=== PATIENT | female | born 1965 | race Caucasian/White ===

== ENCOUNTER → 2016-06-01 | Outpatient (CLI) | payer MEDICARE, BC ==
[2016-06-01 09:52] LABS: CH 28.4; CHCM 33.6; HDW 3.63; HGB 12.8 gm/dL (11.4-16.0); MCH 27.8 pg (25.0-35.0); MCHC 32.8 g/dL (31.0-37.0); MCV 84.9 fL (80.0-100.0); Mean Platelet Volume 7.1; Poikilocytosis Slight; RDW 15.7 % (11.5-15.5)
[2016-06-01 10:10] LABS: ALT 37 U/L (9-52); AST 28 U/L (14-36); Alkaline Phosphatase 90 U/L (38-126); Anion Gap 16 mmol/L; Blood Urea Nitrogen 17 mg/dL (7-17); Calcium 9.8 mg/dL (8.4-10.2); Carbon Dioxide 23 mmol/L (22-30); Chloride 103 mmol/L (98-107); Cholesterol 257 mg/dL (<200); Glucose 193 mg/dL (74-99); HDL Cholesterol 45 mg/dL (40-60); Non-African American GFR(MDRD) >60 (>60 ml/min/1.73 sqM); Potassium 4.9 mmol/L (3.5-5.1); Sodium 142 mmol/L (137-145); Total Bilirubin 0.6 mg/dL (0.2-1.3); Total Protein 7.9 g/dL (6.3-8.2)
[2016-06-01 10:25] LABS: Triglycerides 1100 mg/dL (<150)
[2016-06-01 11:17] LABS: Hemoglobin A1C 6.8 % (4.2-6.1)
[2016-06-01 12:36] LABS: Erythrocyte Sedimentation Rate 16 mm/hr (0-20)
== END | disposition home or self-care (01) ==
LOC: LABWHC1 09:31
PROVIDERS: ATTEND Family Medicine
DX: E11.9 Type 2 diabetes mellitus without complications (principal); M10.9 Gout, unspecified
CPT/HCPCS: 36415; 80053; 80061; 82043; 83036; 84439; 84443; 84550; 85027; 85652

== ENCOUNTER 2017-05-30 00:25 | Inpatient (IN) | payer BC, MEDICARE ==
[2017-05-30 00:35] LABS: Glucose,Whole Blood 268 mg/dL (75-99)
[2017-05-30] MEDS ORDERED: SODIUM CHLORIDE 0.9% 1,000 ML IV STA ×2 (00:43)
--- NOTE | 2017-05-30 00:46 | ED ---
Chest Pain HPI - General Chief Complaint: Chest Pain Stated Complaint: Hyperglycemia Time Seen by Provider: 05/30/17 00:33 Source: patient, RN notes reviewed Mode of arrival: wheelchair Limitations: no limitations - History of Present Illness Initial Comments: This is a 52-year-old female who states she had the onset about 4 PM today of not feeling well. She does state that her fitbit showed an elevated heart rate It said her heart rate was about 130. She's had nausea and now she's had midsternal chest pain. Mild to moderate in severity nonradiating. She states she just generally does not feel well. She is no prior history of heart disease she does have COPD that she was never smoker. Also has a history of Prakash's MD Complaint: chest pain, other - Related Data Home Medications Medication Instructions Recorded Confirmed Furosemide [Lasix] 40 mg PO DAILY 09/17/13 07/20/15 Lisinopril [Zestril] 10 mg PO DAILY 09/17/13 07/20/15 metFORMIN HCL ER [Glucophage Xr] 750 mg PO TID 09/17/13 07/20/15 Allopurinol [Zyloprim] 300 mg PO DAILY 07/27/14 07/20/15 Colchicine [Colcrys] 0.6 mg PO DAILY 07/27/14 07/20/15 Pregabalin [Lyrica] 75 mg PO BID 07/27/14 07/20/15 B Complex & C No.20/Folic Acid 1 mg PO DAILY 07/20/15 07/20/15 [Nephrocaps Softgel] Cholecalciferol [Vitamin D3] 4,200 mg PO DAILY 07/20/15 07/20/15 Cyclobenzaprine [Flexeril] 10 mg PO HS 07/20/15 07/20/15 Iron 18 mg PO DAILY 07/20/15 07/20/15 Milk Thistle 150 mg PO DAILY 07/20/15 07/20/15 Omeprazole [PriLOSEC] 40 mg PO AC-BRKFST 07/20/15 07/20/15 Simvastatin [Zocor] 40 mg PO HS 07/20/15 07/20/15 glipiZIDE XL [Glucotrol Xl] 5 mg PO DAILY 07/20/15 07/20/15 Allergies Allergy/AdvReac Type Severity Reaction Status Date / Time iodine Allergy Anaphylaxis Verified 05/30/17 00:27 latex Allergy Swelling Verified 05/30/17 00:27 codeine AdvReac Nausea & Verified 05/30/17 00:27 Vomiting Review of Systems ROS Statement: Those systems with pertinent positive or pertinent negative responses have been documented in the HPI. ROS Other: All systems not noted in ROS Statement are negative. Past Medical History Past Medical History: COPD, Diabetes Mellitus, Fibromyalgia, Hyperlipidemia, Hypertension, Liver Disease, Renal Disease, Thyroid Disorder Additional Past Medical History / Comment(s): cushings, enlarged spleen, anemia History of Any Multi-Drug Resistant Organisms: None Reported Past Surgical History: Back Surgery, Breast Surgery, Section, Cholecystectomy, Hysterectomy Past Psychological History: No Psychological Hx Reported Smoking Status: Never smoker Past Alcohol Use History: None Reported Past Drug Use History: None Reported General Exam - General Exam Comments Initial Comments: This is a well-developed well-nourished awake alert oriented x 3 female Limitations: no limitations General appearance: alert, anxious Head exam: Present: atraumatic, normocephalic, normal inspection Eye exam: Present: normal appearance, PERRL, EOMI. Absent: scleral icterus, conjunctival injection, periorbital swelling ENT exam: Present: normal exam, mucous membranes moist Neck exam: Present: normal inspection. Absent: tenderness, meningismus, lymphadenopathy Respiratory exam: Present: normal lung sounds bilaterally, chest wall tenderness. Absent: respiratory distress, wheezes, rales, rhonchi, stridor Cardiovascular Exam: Present: normal rhythm, tachycardia, normal heart sounds. Absent: systolic murmur, diastolic murmur, rubs, gallop, clicks GI/Abdominal exam: Present: soft, tenderness (Mild left upper quadrant tenderness palpation patient does have a history of splenomegaly since childhood.), normal bowel sounds. Absent: distended, guarding, rebound, rigid Extremities exam: Present: normal inspection, full ROM, normal capillary refill. Absent: tenderness, pedal edema, joint swelling, calf tenderness Back exam: Present: normal inspection Neurological exam: Present: alert, oriented X3, CN II-XII intact Psychiatric exam: Present: normal affect, normal mood Skin exam: Present: warm, dry, intact, normal color. Absent: rash Course Vital Signs 05/30/17 05/30/17 05/30/17 00:27 00:55 02:12 Temperature 100.7 F H Pulse Rate 148 H 136 H 117 H Respiratory 24 18 18 Rate Blood Pressure 142/83 136/95 116/68 O2 Sat by Pulse 99 98 99 Oximetry 05/30/17 05/30/17 03:01 04:13 Temperature 99.2 F 98.4 F Pulse Rate 118 H 114 H Respiratory 20 20 Rate Blood Pressure 142/83 136/76 O2 Sat by Pulse 98 97 Oximetry - Reevaluation(s) Reevaluation #1: 05/30/17 04:43 I did reevaluate patient several occasions. Patient's heart rate has improved after IV fluids is unclear the exact etiology of the tachycardia no source of infection is found so far likely viral in etiology. Patient is clinically has some evidence of dehydration. The d-dimer is elevated a PE is considered the patient has a severe ALLERGY to iodine and cannot take iodine-based medication. A VQ scan will be ordered for the morning. Patient will be admitted. Chest Pain MDM - MDM I did review the imaging and reports no acute findings. Patient will be admitted due to her ALLERGY to iodine a VQ scan has been ordered. She was given a dose of antibiotic due to the fever of unknown origin at this time. Disposition Clinical Impression: Chest pain, Lactic acidosis, Febrile illness, acute, Viral syndrome, Elevated d -dimer, Tachycardia Disposition: ADMITTED IP TO THIS HOSP Condition: Stable Referrals: None,Stated [REFERRING] - 1-2 days
[2017-05-30 01:00] LABS: Anisocytosis Slight; Basophils % (A) 0 %; Eosinophils # (A) 0.1 k/uL (0-0.7); Eosinophils % (A) 2 %; HCT 41.6 % (34.0-46.0); HGB 14.2 gm/dL (11.4-16.0); Lymphocytes # (A) 0.4 k/uL (1.0-4.8); Lymphocytes % (A) 7 %; MCH 28.1 pg (25.0-35.0); MCV 82.5 fL (80.0-100.0); Mean Platelet Volume 7.9; Monocytes # (A) 0.1 k/uL (0-1.0); Monocytes % (A) 2 %; Neutrophils # (A) 5.4 k/uL (1.3-7.7); Neutrophils % (A) 89 %; Platelet Count 129 k/uL (150-450); RBC 5.04 m/uL (3.80-5.40); RDW 16.4 % (11.5-15.5); WBC 6.1 k/uL (3.8-10.6)
[2017-05-30 01:10] LABS: ALT 55 U/L (9-52); AST 56 U/L (14-36); Albumin 4.4 g/dL (3.5-5.0); Alkaline Phosphatase 96 U/L (38-126); Amylase 44 U/L (30-110); Anion Gap 17 mmol/L; Blood Urea Nitrogen 21 mg/dL (7-17); Calcium 9.4 mg/dL (8.4-10.2); Carbon Dioxide 22 mmol/L (22-30); Chloride 99 mmol/L (98-107); Glucose 254 mg/dL (74-99); Lipase 65 U/L (23-300); Magnesium 1.4 mg/dL (1.6-2.3); Potassium 4.1 mmol/L (3.5-5.1); Sodium 138 mmol/L (137-145); Total Bilirubin 1.1 mg/dL (0.2-1.3); Total Protein 6.9 g/dL (6.3-8.2)
[2017-05-30] MEDS ORDERED: MAGNESIUM SULFATE-D5W PMX 1 GM in DEXTROSE/WATER 1 100ML.BAG IVPB ONE (01:13)
[2017-05-30 01:20] LABS: Creatine Kinase 69 U/L (30-135)
[2017-05-30 01:22] LABS: D-Dimer 0.8 mg/L FEU (<0.60); Prothrombin Time 10.2 sec (9.0-12.0)
[2017-05-30 01:31] LABS: Appearance,Urine Clear (Clear); Bilirubin,Urine Negative (Negative); Blood,Urine Negative (Negative); Color,Urine Yellow; Glucose,Urine (UA) 3+ (Negative); Leukocyte Esterase,Urine Negative (Negative); Nitrite,Urine Negative (Negative); PH, Urine 5.5 (5.0-8.0); Protein,Urine Trace (Negative); Specific Gravity,Urine 1.027 (1.001-1.035); Urobilinogen,Urine <2.0 mg/dL (<2.0)
[2017-05-30 01:34] LABS: Creatine Kinase MB 0.9 ng/mL (0.0-2.4); Troponin I <0.012 ng/mL (0.000-0.034)
--- NOTE | 2017-05-30 01:35 | XR ---
EXAMINATION TYPE: XR chest 2V DATE OF EXAM: 05/30/2017 COMPARISON: 07/21/2015 HISTORY: Chest pain TECHNIQUE: Frontal and lateral views of the chest are obtained. FINDINGS: There is a poor inspiration. There is no gross heart failure. Heart size is normal. There are chest leads. Costophrenic angles are clear. IMPRESSION: Poor inspiration that is new compared to old exam. Normal heart. No gross heart failure.
[2017-05-30 01:55] LABS: Ketones,Urine 2+ (Negative)
--- NOTE | 2017-05-30 02:13 | US ---
EXAMINATION TYPE: US abd limited kidneys/bladder DATE OF EXAM: 05/30/2017 COMPARISON: EXAMINATION TYPE: US abd limited kidneys/bladder DATE OF EXAM: 05/30/2017 COMPARISON: EXAMINATION TYPE: US abd limited kidneys/bladder DATE OF EXAM: 05/30/2017 COMPARISON: NONE CLINICAL HISTORY: Pain. EXAM MEASUREMENTS: Spleen: wnl Left Kidney: wnl Right Kidney: 11.1 x 4.4 x EXAMINATION TYPE: US abd limited kidneys/bladder DATE OF EXAM: 05/30/2017 COMPARISON: NONE CLINICAL HISTORY: Pain. LLQ pain kidneys and bladder with spleen per Dr. Farrell. EXAM MEASUREMENTS: Right Kidney: 11.5 x 4.0 x 4.6 cm Left Kidney: 12.0 x 4.7 x 3.9 cm Right Kidney: No hydronephrosis or masses seen Left Kidney: Anechoic area seen upper pole measuring 1.8 x 1.7 x 2.2cm Bladder: not fully distended Spleen: 16cm Splenomegaly with accessory spleen seen measuring 1.4 x 1.9 x 1.5cm IMPRESSION: There is a simple 1.8 cm cyst on the upper pole left kidney. No evidence of solid renal m ass or obstruction. Splenomegaly. Spleen measures 15.9 cm. Urinary bladder was almost empty during th e exam.
[2017-05-30] MEDS ORDERED: HEPARIN SODIUM,PORCINE 5,000 UNIT/ML 1 ML VIAL IV STA (02:35)
[2017-05-30] MEDS ORDERED: HEPARIN SOD,PORK IN 0.45% NACL 25,000 UNIT in 0.45% NACL 1 500ML.BAG IV SCH (02:45)
[2017-05-30] MEDS ORDERED: SODIUM CHLORIDE 0.9% 2,000 ML IV ONE (03:50)
[2017-05-30] MEDS ORDERED: cefTRIAXone IN SWFI 1,000 MG/10 ML SYRINGE IVP STA (03:50)
[2017-05-30] MEDS ORDERED: ACETAMINOPHEN TAB 500 MG TAB PO STA (04:01)
[2017-05-30] MEDS ORDERED: ACETAMINOPHEN TAB 325 MG TAB PO PRN (05:16)
[2017-05-30] MEDS ORDERED: NALOXONE 0.4 MG/ML 1 ML VIAL IV PRN (05:16)
[2017-05-30] MEDS ORDERED: IBUPROFEN 400 MG TAB PO PRN (05:16)
[2017-05-30 06:12] VITALS: BMI 28.8
[2017-05-30 06:17] LABS: Glucose,Whole Blood 226 mg/dL (75-99)
--- NOTE | 2017-05-30 07:26 | P.HPIM ---
History of Present Illness H&P Date: 05/30/17 Chief Complaint: Chest pain. This is a history and physical on a 52-year-old white female with known history of diabetes who yesterday's started feeling tachycardic. She noticed this because of severe pain. She states her chest pressure. She was wearing her FITBIT and noticed heart rates in the 130s and 140s. Blood sugar was also quite elevated yesterday. This is somewhat unusual for the patient, to begin with. She states she had a new grandbaby in the family born yesterday so she is quite happy. There is no overt distress. She's been exercising normally until this past day. Because of her presentation with the severe chest pressure. There was no nausea no vomiting she is also had slight febrile illness element. The patient was admitted to rule out myocardial infraction with pulmonary embolus. The patient is sitting somewhat uncomfortably this morning a little bit anxious otherwise. Review of Systems Constitutional: Reports as per HPI Eyes: denies blurred vision, denies pain Ears, nose, mouth and throat: Denies dysphagia Cardiovascular: Reports chest pain Respiratory: Denies cough, Denies cough with sputum, Denies hemoptysis Gastrointestinal: Denies abdominal pain, Denies diarrhea, Denies nausea, Denies vomiting Genitourinary: Denies dysuria, Denies hematuria Musculoskeletal: Denies myalgias Integumentary: Denies pruritus, Denies rash Neurological: Denies numbness, Denies weakness Past Medical History Past Medical History: COPD, Diabetes Mellitus, Fibromyalgia, Hyperlipidemia, Hypertension, Liver Disease, Renal Disease, Thyroid Disorder Additional Past Medical History / Comment(s): cushings, enlarged spleen, anemia History of Any Multi-Drug Resistant Organisms: None Reported Past Surgical History: Back Surgery, Breast Surgery, Section, Cholecystectomy, Hysterectomy Past Anesthesia/Blood Transfusion Reactions: No Reported Reaction Past Psychological History: No Psychological Hx Reported Smoking Status: Never smoker Past Alcohol Use History: None Reported Past Drug Use History: None Reported - Past Family History Mother Family Medical History: Neurologic Disorder Father Family Medical History: Cancer, Congestive Heart Failure (CHF), Diabetes Mellitus Medications and Allergies Home Medications Medication Instructions Recorded Confirmed Type Lisinopril [Zestril] 10 mg PO DAILY 09/17/13 07/20/15 History metFORMIN HCL ER [Glucophage Xr] 750 mg PO BID 09/17/13 07/20/15 History B Complex & C No.20/Folic Acid 1 mg PO DAILY 07/20/15 07/20/15 History [Nephrocaps Softgel] Cholecalciferol [Vitamin D3] 4,000 mg PO DAILY 07/20/15 07/20/15 History Milk Thistle 175 mg PO DAILY 07/20/15 07/20/15 History Simvastatin [Zocor] 20 mg PO HS 07/20/15 07/20/15 History glipiZIDE XL [Glucotrol Xl] 10 mg PO DAILY 07/20/15 07/20/15 History ALPRAZolam [Xanax] 0.5 mg PO Q12HR PRN 05/30/17 05/30/17 History Ascorbic Acid [Vitamin C] 1,000 mg PO DAILY 05/30/17 05/30/17 History Cranberry Fruit Concentrate [Azo 25,000 mg PO DAILY 05/30/17 05/30/17 History Cranberry] Sennosides [Senna] 3 tab PO HS 05/30/17 05/30/17 History Ubidecarenone [Co Q-10] 100 mg PO DAILY 05/30/17 05/30/17 History Zinc 30 mg PO DAILY 05/30/17 05/30/17 History Allergies Allergy/AdvReac Type Severity Reaction Status Date / Time iodine Allergy Anaphylaxis Verified 05/30/17 00:27 latex Allergy Swelling Verified 05/30/17 00:27 codeine AdvReac Nausea & Verified 05/30/17 00:27 Vomiting Physical Exam Vitals: Vital Signs Temp Pulse Pulse Resp BP BP Pulse Ox 05/30/17 05:37 99.3 F 117 H 18 125/74 96 05/30/17 05:32 99.0 F 113 H 16 126/73 100 05/30/17 04:13 98.4 F 114 H 20 136/76 97 05/30/17 03:01 99.2 F 118 H 20 142/83 98 05/30/17 02:12 117 H 18 116/68 99 05/30/17 00:55 136 H 18 136/95 98 05/30/17 00:27 100.7 F H 148 H 24 142/83 99 Intake and Output 05/29/17 05/30/17 05/30/17 22:59 06:59 14:59 Other: Weight 96.6 kg - Constitutional General appearance: average body habitus - EENT Eyes: no abnormal pupil - Neck Neck: no lymphadenopathy - Respiratory Respiratory: bilateral: CTA - Cardiovascular Heart rate: 120 Rhythm: regular Heart sounds: normal: S1, S2 Abnormal Heart Sounds: no S3 Gallop - Gastrointestinal General gastrointestinal: soft, no tenderness - Integumentary Integumentary: no cyanotic - Neurologic Neurologic: CNII-XII intact Results CBC & Chem 7: 05/30/17 00:48 05/30/17 00:48 Labs: Abnormal Lab Results - Last 24 Hours (Table) 05/30/17 05/30/17 05/30/17 Range/Units 00:34 00:48 00:48 RDW 16.4 H (11.5-15.5) % Plt Count 129 L (150-450) k/uL Lymphocytes # 0.4 L (1.0-4.8) k/uL D-Dimer (<0.60) mg/L FEU BUN 21 H (7-17) mg/dL Glucose 254 H (74-99) mg/dL POC Glucose (mg/dL) 268 H (75-99) mg/dL Plasma Lactic Acid Erick (0.7-2.0) mmol/L Magnesium 1.4 L (1.6-2.3) mg/dL AST 56 H (14-36) U/L ALT 55 H (9-52) U/L Urine Protein (Negative) Urine Glucose (UA) (Negative) Urine Ketones (Negative) 05/30/17 05/30/17 05/30/17 Range/Units 00:48 00:48 01:25 RDW (11.5-15.5) % Plt Count (150-450) k/uL Lymphocytes # (1.0-4.8) k/uL D-Dimer 0.80 H (<0.60) mg/L FEU BUN (7-17) mg/dL Glucose (74-99) mg/dL POC Glucose (mg/dL) (75-99) mg/dL Plasma Lactic Acid Erick 3.3 H* (0.7-2.0) mmol/L Magnesium (1.6-2.3) mg/dL AST (14-36) U/L ALT (9-52) U/L Urine Protein Trace H (Negative) Urine Glucose (UA) 3+ H (Negative) Urine Ketones 2+ H (Negative) 05/30/17 05/30/17 Range/Units 05:19 06:15 RDW (11.5-15.5) % Plt Count (150-450) k/uL Lymphocytes # (1.0-4.8) k/uL D-Dimer (<0.60) mg/L FEU BUN (7-17) mg/dL Glucose (74-99) mg/dL POC Glucose (mg/dL) 226 H (75-99) mg/dL Plasma Lactic Acid Erick 2.7 H* (0.7-2.0) mmol/L Magnesium (1.6-2.3) mg/dL AST (14-36) U/L ALT (9-52) U/L Urine Protein (Negative) Urine Glucose (UA) (Negative) Urine Ketones (Negative) Thrombosis Risk Factor Assmnt - Choose All That Apply Any of the Below Risk Factors Present?: Yes Each Factor Represents 1 point: Abnormal pulmonary function (COPD), Age 41-60 years, Obesity (BMI >25) Other Risk Factors: Yes Each Risk Factor Represents 3 Points: Family history of DVT/PE, History of DVT/ PE Thrombosis Risk Factor Assessment Total Risk Factor Score: 9 Thrombosis Risk Factor Assessment Level: High Risk Assessment and Plan (1) Altered glucose metabolism due to diabetes Current Visit: Yes Status: Acute Code(s): E11.9 - TYPE 2 DIABETES MELLITUS WITHOUT COMPLICATIONS SNOMED Code(s): 54989543 (2) Chest pain Current Visit: Yes Status: Acute Code(s): R07.9 - CHEST PAIN, UNSPECIFIED SNOMED Code(s): 54732125 (3) Elevated d-dimer Current Visit: Yes Status: Acute Code(s): R79.89 - OTHER SPECIFIED ABNORMAL FINDINGS OF BLOOD CHEMISTRY SNOMED Code(s): 454186844 (4) Febrile illness, acute Current Visit: Yes Status: Acute Code(s): R50.9 - FEVER, UNSPECIFIED SNOMED Code(s): 038506259 (5) Tachycardia Current Visit: Yes Status: Acute Code(s): R00.0 - TACHYCARDIA, UNSPECIFIED SNOMED Code(s): 9371552 Plan: Given her overall comorbidities, rule out myocardial infraction and pulmonary embolus. Consult cardiology at this time. Continue heparin. Reconcile home medications. Question new element of SVT. Watch electrolytes and vitals closely. Question need for pain control versus chronotropic treatment. Otherwise, I discussed with CODE STATUS, she is a full code at this time. Dr. Damian's group will be covering for the weekend. See orders otherwise. Time with Patient: Greater than 30
[2017-05-30] MEDS ORDERED: ONDANSETRON 4 MG/2 ML VIAL IVP PRN (07:59)
--- NOTE | 2017-05-30 08:43 | P.CRDCN ---
History of Present Illness Consult date: 05/30/17 Requesting physician: Anirudh Bhandari Reason for Consult (text): chest pain Chief complaint: shortness of breath, chest pressure History of present illness: A pleasant 52-year-old female patient with past history of diabetes, hypertension and family history significant for coronary artery disease. She presented to the emergency department after developing complaints of overall not feeling well sometime after lunch yesterday. She noticed her heart rate to be elevated as well as her blood sugar. She also developed some shortness of breath and chest pressure as well as some left upper quadrant abdominal pain. Upon presentation patient was found to be febrile with temperature 100.7. She was tachycardic in the 130s 140s, sinus mechanism. Labs showed an elevated d- dimer at 0.80, magnesium 1.4 this was supplemented and elevated lactic acid of 3.3. Troponin was negative at less than 0.012 and BNP was normal at 23. Iodine ALLERGY, she has been scheduled to undergo VQ scan this morning. Chest x -ray showed poor inspiration that is new compared to old exam with no gross heart failure. He is been started on IV fluids and IV heparin. Upon examination, patient is resting in bed. She is overall not feeling well. She continues to complain of feeling short of breath with some nausea and chest pressure as well as some left upper quadrant discomfort. Past Medical History Past Medical History: COPD, Diabetes Mellitus, Fibromyalgia, Hyperlipidemia, Hypertension, Liver Disease, Renal Disease, Thyroid Disorder Additional Past Medical History / Comment(s): cushings, enlarged spleen, anemia History of Any Multi-Drug Resistant Organisms: None Reported Past Surgical History: Back Surgery, Breast Surgery, Section, Cholecystectomy, Hysterectomy Past Anesthesia/Blood Transfusion Reactions: No Reported Reaction Past Psychological History: No Psychological Hx Reported Smoking Status: Never smoker Past Alcohol Use History: None Reported Past Drug Use History: None Reported - Past Family History Mother Family Medical History: Neurologic Disorder Father Family Medical History: Cancer, Congestive Heart Failure (CHF), Diabetes Mellitus Medications and Allergies Home Medications Medication Instructions Recorded Confirmed Type Lisinopril [Zestril] 10 mg PO DAILY 09/17/13 05/30/17 History metFORMIN HCL ER [Glucophage Xr] 500 mg PO DAILY PRN 09/17/13 05/30/17 History B Complex & C No.20/Folic Acid 1 mg PO DAILY 07/20/15 05/30/17 History [Nephrocaps Softgel] Cholecalciferol [Vitamin D3] 4,000 mg PO DAILY 07/20/15 05/30/17 History Simvastatin [Zocor] 20 mg PO HS 07/20/15 05/30/17 History glipiZIDE XL [Glucotrol Xl] 5 mg PO DAILY 07/20/15 05/30/17 History ALPRAZolam [Xanax] 0.5 mg PO TID PRN 05/30/17 05/30/17 History Ascorbic Acid [Vitamin C] 1,000 mg PO DAILY 05/30/17 05/30/17 History Cranberry Fruit Concentrate [Azo 25,000 mg PO DAILY 05/30/17 05/30/17 History Cranberry] Naproxen Sodium [Aleve] 220 mg PO DAILY PRN 05/30/17 05/30/17 History Sennosides [Senna] 25.8 tab PO HS 05/30/17 05/30/17 History Ubidecarenone [Co Q-10] 100 mg PO DAILY 05/30/17 05/30/17 History Zinc 509 mg PO DAILY PRN 05/30/17 05/30/17 History Allergies Allergy/AdvReac Type Severity Reaction Status Date / Time iodine Allergy Anaphylaxis Verified 05/30/17 08:22 latex Allergy Swelling Verified 05/30/17 08:22 codeine AdvReac Nausea & Verified 05/30/17 08:22 Vomiting Physical Exam Vitals: Vital Signs Temp Pulse Pulse Resp BP BP Pulse Ox 05/30/17 08:00 99 F 121 H 18 104/56 99 05/30/17 05:37 99.3 F 117 H 18 125/74 96 05/30/17 05:32 99.0 F 113 H 16 126/73 100 05/30/17 04:13 98.4 F 114 H 20 136/76 97 05/30/17 03:01 99.2 F 118 H 20 142/83 98 05/30/17 02:12 117 H 18 116/68 99 05/30/17 00:55 136 H 18 136/95 98 05/30/17 00:27 100.7 F H 148 H 24 142/83 99 Intake and Output 05/29/17 05/30/17 05/30/17 22:59 06:59 14:59 Other: # Voids 1 Weight 96.6 kg PHYSICAL EXAMINATION: HEENT: Head is atraumatic, normocephalic. Pupils equal, round. Neck is supple. There is no elevated jugular venous pressure. HEART EXAMINATION: Heart sounds regular, S1 and S2, tachycardic with a systolic murmur. CHEST EXAMINATION: Lungs are clear to auscultation and precussion. No chest wall tenderness is noted on palpation or with deep breathing. ABDOMEN: Soft, left upper quadrant tender to palpation. Bowel sounds are heard. No organomegaly noted. EXTREMITIES: 2+ peripheral pulses with no evidence of peripheral edema and no calf tenderness noted. NEUROLOGIC patient is awake, alert and oriented x3. . Results 05/30/17 00:48 05/30/17 00:48 Cardiac Enzymes 05/30/17 05/30/17 Range/Units 00:48 00:48 AST 56 H (14-36) U/L CK-MB (CK-2) 0.9 (0.0-2.4) ng/mL Troponin I <0.012 (0.000-0.034) ng/mL Coagulation 05/30/17 Range/Units 00:48 PT 10.2 (9.0-12.0) sec APTT 22.0 (22.0-30.0) sec CBC 05/30/17 Range/Units 00:48 WBC 6.1 (3.8-10.6) k/uL RBC 5.04 (3.80-5.40) m/uL Hgb 14.2 (11.4-16.0) gm/dL Hct 41.6 (34.0-46.0) % Plt Count 129 L (150-450) k/uL Comprehensive Metabolic Panel 05/30/17 Range/Units 00:48 Sodium 138 (137-145) mmol/L Potassium 4.1 (3.5-5.1) mmol/L Chloride 99 (98-107) mmol/L Carbon Dioxide 22 (22-30) mmol/L BUN 21 H (7-17) mg/dL Creatinine 0.80 (0.52-1.04) mg/dL Glucose 254 H (74-99) mg/dL Calcium 9.4 (8.4-10.2) mg/dL AST 56 H (14-36) U/L ALT 55 H (9-52) U/L Alkaline Phosphatase 96 (38-126) U/L Total Protein 6.9 (6.3-8.2) g/dL Albumin 4.4 (3.5-5.0) g/dL Current Medications Generic Name Dose Route Start Last Admin Trade Name Freq PRN Reason Stop Dose Admin Acetaminophen 650 mg 05/30/17 05:16 Tylenol Tab PO Q6HR PRN Mild Pain or Fever > 100.5 Allopurinol 300 mg 05/30/17 09:00 Zyloprim PO DAILY [facility] Atorvastatin Calcium 20 mg 05/30/17 21:00 Lipitor PO HS [facility] Cholecalciferol 4,000 unit 05/30/17 09:00 Vitamin D3 PO DAILY [facility] Colchicine 0.6 mg 05/30/17 09:00 Colcrys PO DAILY [facility] Cyclobenzaprine HCl 10 mg 05/30/17 21:00 Flexeril PO HS [facility] Ferrous Sulfate 325 mg 05/30/17 09:00 Feosol PO DAILY [facility] Furosemide 40 mg 05/30/17 09:00 Lasix PO DAILY [facility] Glipizide 2.5 mg 05/30/17 09:00 Glucotrol PO BID [facility] Sodium Chloride 1,000 mls @ 100 mls/hr 05/30/17 00:43 05/30/17 00:54 Saline 0.9% IV 05/30/17 10:42 100 mls/hr .Q10H STA Administration Heparin Sodium/Sodium Chloride 500 mls @ 34.78 mls/hr 05/30/17 02:45 02:58 25,000 unit/ Sodium Chloride IV 18 units/kg/hr .[id number] REBECCA 34.78 mls/hr Protocol Administration 18 UNITS/KG/HR Potassium Chloride/Sodium Chloride 1,000 mls @ 80 mls/hr 05/30/17 07:00 Ns-Kcl 20 Meq/L Iv Solution IV .[id number] [facility] Ibuprofen 400 mg 05/30/17 05:16 Motrin PO Q6HR PRN Mild Pain or Fever > 100.5 Lisinopril 10 mg 05/30/17 09:00 Zestril PO DAILY [facility] Metformin HCl 1,000 mg 05/30/17 09:00 Glucophage PO BID [facility] Naloxone HCl 0.2 mg 05/30/17 05:16 Narcan IV Q2M PRN Opioid Reversal Ondansetron HCl 4 mg 05/30/17 07:59 05/30/17 08:11 Zofran IVP 4 mg Q6HR PRN Administration Nausea And Vomiting Pantoprazole Sodium 40 mg 05/30/17 07:30 Protonix PO AC-BRKFST [facility] Pregabalin 75 mg 05/30/17 09:00 Lyrica PO BID [facility] Intake and Output 05/29/17 05/30/17 05/30/17 22:59 06:59 14:59 Other: # Voids 1 Weight 96.6 kg 05/30/17 00:48 05/30/17 00:48 EKG Interpretations (text) Sinus tachycardia with nonspecific ST-T wave abnormalities Assessment and Plan Assessment: #1 symptoms of shortness of breath with chest pressure as well as nausea and left upper quadrant pain #2 elevated d-dimer, ALLERGY to iodine, awaiting VQ scan #3 diabetes with hyperglycemia #4 Hypertension #5 family history of premature CAD #6 sinus tachycardia likely secondary to febrile illness Plan: From cardiology's perspective, we will obtain a 2-D echo with Doppler to assess LV function. We agree with obtaining VQ scan. Patient requires further workup for febrile illness. We will follow troponin trend and repeat magnesium level. We will continue to follow the patient and provide further recommendations accordingly. MANUFACTURING ENGINEERING TECHNOLOGIST note has been reviewed, I agree with a documented findings and plan of care. Patient was seen and examined.
[2017-05-30] MEDS ORDERED: metFORMIN 500 MG TAB PO SCH (09:00)
[2017-05-30] MEDS ORDERED: FUROSEMIDE 40 MG TAB PO SCH (09:00)
[2017-05-30] MEDS ORDERED: COLCHICINE 0.6 MG TAB PO SCH (09:00)
[2017-05-30] MEDS ORDERED: FERROUS SULFATE 325 MG TAB PO SCH (09:00)
[2017-05-30] MEDS ORDERED: PREGABALIN 75 MG CAP PO SCH (09:00)
[2017-05-30] MEDS ORDERED: ALLOPURINOL 300 MG TAB PO SCH (09:00)
--- NOTE | 2017-05-30 09:25 | P.PN ---
Progress Note - Text This is an addendum to the dictated cardiology consultation. The patient has a history of hypertension, hyperlipidemia, diabetes mellitus and a family history of premature coronary disease who is usually active physically, achieves 10,000 steps a day without any symptoms of dyspnea, chest discomfort or arrhythmia. Yesterday she started complaining of abdominal and lower chest discomfort, fatigue and noted that her heart rate is fast on her Fitbit. She presented to the emergency room and was febrile. She is nauseated, she has no cough. She has no prior cardiac testing or cardiac history. Her physical examination shows clear lungs with no significant murmur and no peripheral edema. She has mild abdominal discomfort. Her EKG shows sinus tachycardia with no acute ST segment changes and her initial troponin is normal. Her plasma lactic acid level is elevated consistent with sepsis. I believe that the sinus tachycardia is a reflex tachycardia to her presenting febrile episode. We will continue IV fluid, obtain an echocardiogram with Doppler and follow her cardiac enzymes. Depending on her progress further recommendations will be made. Thank you for this consult we will follow with you.
[2017-05-30 09:51] LABS: Magnesium 1.6 mg/dL (1.6-2.3)
--- NOTE | 2017-05-30 11:12 | NM ---
EXAMINATION TYPE: NM pul vent and perfuse DATE OF EXAM: 05/30/2017 COMPARISON: Chest radiograph dated 05/30/2017. HISTORY: Elevated d-dimer and shortness of breath TECHNIQUE: Utilizing inhalation of 65.7 mCi Tc 99m DTPA aerosol and intravenous injection of 4.93 mC i of Tc 99m MAA, ventilation and perfusion images are acquired post injection in multiple projections . FINDINGS: Normal radiotracer distribution is noted in the lungs. There is no evidence of mismatched defects. No scintigraphic evidence of pulmonary embolus. IMPRESSION: Normal exam. No perfusion defects with an unremarkable chest radiograph.
[2017-05-30 11:38] LABS: Glucose,Whole Blood 202 mg/dL (75-99)
[2017-05-30] MEDS ORDERED: CYCLOBENZAPRINE 10 MG TAB PO PRN (11:38)
[2017-05-30] MEDS ORDERED: ALLOPURINOL 300 MG TAB PO PRN (11:38)
[2017-05-30] MEDS ORDERED: COLCHICINE 0.6 MG TAB PO PRN (11:38)
[2017-05-30] MEDS ORDERED: metFORMIN 500 MG TAB PO PRN (11:39)
[2017-05-30] MEDS: 0.9% NACL WITH KCL 20 MEQ/L 1,000 ML IV SCH ×2 (11:47→20:00)
[2017-05-30] MEDS: LISINOPRIL 10 MG TAB PO SCH (11:48)
[2017-05-30] MEDS: PANTOPRAZOLE 40 MG TABLET PO SCH (11:49)
[2017-05-30] MEDS: ASPIRIN 81 MG PO SCH (11:50)
[2017-05-30] MEDS: CHOLECALCIFEROL 1,000 UNIT TAB PO SCH (11:51)
[2017-05-30] MEDS: glipiZIDE 5 MG TAB PO SCH ×2 (11:51→18:16)
[2017-05-30] MEDS ORDERED: Magnesium Replacement Protocol 1 EACH MISC MISCELLANE PRN (12:45)
[2017-05-30] MEDS: MAGNESIUM SULFATE-D5W PMX 1 GM in DEXTROSE/WATER 1 100ML.BAG IVPB SCH ×2 (14:07→16:16)
[2017-05-30 16:39] LABS: Glucose,Whole Blood 198 mg/dL (75-99)
[2017-05-30] MEDS ORDERED: LOPERAMIDE 2 MG CAP PO PRN (17:51)
[2017-05-30] MEDS ORDERED: LOPERAMIDE 2 MG CAP PO STA (17:51)
[2017-05-30] MEDS: ATORVASTATIN 20 MG TAB PO SCH (20:08)
[2017-05-30] MEDS ORDERED: PANTOPRAZOLE 40 MG/10 ML VIAL IVP STA (20:44)
[2017-05-30 20:59] LABS: Glucose,Whole Blood 156 mg/dL (75-99)
[2017-05-30] MEDS ORDERED: CYCLOBENZAPRINE 10 MG TAB PO SCH (21:00)
[2017-05-30] MEDS: ACETAMINOPHEN IV (For NPO) 1,000 MG in EMPTY BAG 1 BAG IVPB SCH (21:35)
[2017-05-30] MEDS: ALPRAZolam 0.5 MG TAB PO PRN (21:35)
[2017-05-31 00:25] LABS: Glucose,Whole Blood 103 mg/dL (75-99)
[2017-05-31 02:26] LABS: Glucose,Whole Blood 93 mg/dL (75-99)
[2017-05-31] MEDS: ACETAMINOPHEN IV (For NPO) 1,000 MG in EMPTY BAG 1 BAG IVPB SCH ×3 (06:05→17:16)
[2017-05-31 06:31] LABS: Glucose,Whole Blood 97 mg/dL (75-99)
[2017-05-31 07:20] LABS: Anisocytosis Slight; Basophils % (A) 1 %; Eosinophils # (A) 0.1 k/uL (0-0.7); Eosinophils % (A) 5 %; HCT 30.6 % (34.0-46.0); Hypochromasia Slight; Lymphocytes # (A) 0.4 k/uL (1.0-4.8); Lymphocytes % (A) 21 %; MCH 28.1 pg (25.0-35.0); MCHC 32.7 g/dL (31.0-37.0); Mean Platelet Volume 7.8; Monocytes # (A) 0.1 k/uL (0-1.0); Monocytes % (A) 7 %; Neutrophils # (A) 1.2 k/uL (1.3-7.7); Neutrophils % (A) 64 %; Platelet Count 77 k/uL (150-450); RBC 3.56 m/uL (3.80-5.40); RDW 16.3 % (11.5-15.5)
[2017-05-31 07:23] LABS: WBC 1.9 k/uL (3.8-10.6)
[2017-05-31] MEDS: PANTOPRAZOLE 40 MG TABLET PO SCH (07:28)
[2017-05-31] MEDS: glipiZIDE 5 MG TAB PO SCH ×2 (07:28→17:16)
[2017-05-31 07:34] LABS: Anion Gap 7 mmol/L; Blood Urea Nitrogen 8 mg/dL (7-17); Calcium 7.6 mg/dL (8.4-10.2); Carbon Dioxide 25 mmol/L (22-30); Chloride 108 mmol/L (98-107); Glucose 107 mg/dL (74-99); Magnesium 2.2 mg/dL (1.6-2.3); Potassium 3.8 mmol/L (3.5-5.1); Sodium 140 mmol/L (137-145)
[2017-05-31] MEDS: 0.9% NACL WITH KCL 20 MEQ/L 1,000 ML IV SCH ×2 (08:35→21:10)
[2017-05-31] MEDS: ASPIRIN 81 MG PO SCH (08:36)
[2017-05-31] MEDS: LISINOPRIL 10 MG TAB PO SCH (08:36)
[2017-05-31] MEDS: CHOLECALCIFEROL 1,000 UNIT TAB PO SCH (08:36)
[2017-05-31] MEDS: ALPRAZolam 0.5 MG TAB PO PRN ×2 (08:39→22:09)
[2017-05-31 08:55] LABS: Basophils % (A) 0 %; Eosinophils # (A) 0.1 k/uL (0-0.7); Eosinophils % (A) 6 %; HCT 32.1 % (34.0-46.0); HGB 10.4 gm/dL (11.4-16.0); Lymphocytes # (A) 0.4 k/uL (1.0-4.8); Lymphocytes % (A) 22 %; MCH 28.1 pg (25.0-35.0); MCHC 32.3 g/dL (31.0-37.0); MCV 87.1 fL (80.0-100.0); Mean Platelet Volume 7.8; Monocytes # (A) 0.1 k/uL (0-1.0); Monocytes % (A) 6 %; Neutrophils # (A) 1.1 k/uL (1.3-7.7); Neutrophils % (A) 64 %; Poikilocytosis Slight; RBC 3.68 m/uL (3.80-5.40); RDW 15.4 % (11.5-15.5)
[2017-05-31 08:58] LABS: Platelet Count 75 k/uL (150-450); WBC 1.8 k/uL (3.8-10.6)
[2017-05-31 12:07] LABS: Glucose,Whole Blood 148 mg/dL (75-99)
--- NOTE | 2017-05-31 15:00 | P.PN ---
Subjective Progress Note Date: 05/31/17 This is a pleasant 52-year-old female patient with past history of diabetes, hypertension and family history significant for coronary artery disease. She presented to the emergency department after developing complaints of overall not feeling well sometime after lunch yesterday. She noticed her heart rate to be elevated as well as her blood sugar. She also developed some shortness of breath and chest pressure as well as some left upper quadrant abdominal pain. Upon presentation patient was found to be febrile with temperature 100.7. She was tachycardic in the 130s 140s, sinus mechanism. Labs showed an elevated d-dimer at 0.80, magnesium 1.4 this was supplemented and elevated lactic acid of 3.3. Troponin was negative at less than 0.012 and BNP was normal at 23. Iodine ALLERGY, she underwent VQ scan that was negative for PE. Chest x-ray showed poor inspiration that is new compared to old exam with no gross heart failure. She was started on IV fluids and IV heparin. Upon examination, patient is resting in bed. She is to feel weird, fatigued and weak and she has been afebrile today. Labs have been reviewed and show troponins negative 3. She's had a drop in hemoglobin from 14.2 yesterday to 10.4 today and white count has dropped from 6.1-1.8. After Supplementation her magnesium came back this morning at 2.2. Her heart rate has improved and is running in the 90s, blood pressure is stable. Echocardiogram showed normal LV systolic function with an ejection fraction between 60-65% with no significant valvular wall motion abnormalities. Objective - Vital Signs Vital signs: Vital Signs Temp 98.2 F 05/31/17 12:00 Pulse 92 05/31/17 12:00 Resp 17 05/31/17 12:00 BP 108/62 05/31/17 12:00 Pulse Ox 95 05/31/17 12:00 Intake & Output 05/30/17 05/31/17 05/31/17 18:59 06:59 18:59 Intake Total 500 1240 Balance 500 1240 Weight 104.3 kg Intake: Intake, IV Titration 1040 Amount 0.9% NaCl with KCl 20 Meq 640 /l 1,000 ml @ 80 mls/hr IV .[id number] [facility] Rx#: [id number] ACETAMINOPHEN IV (For NPO 400 ) 1,000 mg In Empty Bag 1 bag @ 400 mls/hr IVPB Q6HR [facility] Rx#:[id number] Oral 500 200 Other: Voiding Method Toilet # Voids 1 1 # Bowel Movements 2 - Exam PHYSICAL EXAMINATION: HEENT: Head is atraumatic, normocephalic. Pupils equal, round. Neck is supple. There is no elevated jugular venous pressure. HEART EXAMINATION: Heart sounds regular, S1 and S2, tachycardic with a systolic murmur. CHEST EXAMINATION: Lungs are clear to auscultation and precussion. No chest wall tenderness is noted on palpation or with deep breathing. ABDOMEN: Soft, left upper quadrant tender to palpation. Bowel sounds are heard. No organomegaly noted. EXTREMITIES: 2+ peripheral pulses with no evidence of peripheral edema and no calf tenderness noted. NEUROLOGIC patient is awake, alert and oriented x3. - Labs CBC & Chem 7: 05/31/17 08:39 05/31/17 06:48 Labs: Abnormal Lab Results - Last 24 Hours (Table) 05/30/17 05/30/17 05/31/17 Range/Units 16:35 20:55 00:05 WBC (3.8-10.6) k/uL RBC (3.80-5.40) m/uL Hgb (11.4-16.0) gm/dL Hct (34.0-46.0) % RDW (11.5-15.5) % Plt Count (150-450) k/uL Neutrophils # (1.3-7.7) k/uL Lymphocytes # (1.0-4.8) k/uL Chloride (98-107) mmol/L Glucose (74-99) mg/dL POC Glucose (mg/dL) 198 H 156 H 103 H (75-99) mg/dL Calcium (8.4-10.2) mg/dL 05/31/17 05/31/17 05/31/17 Range/Units 06:48 06:48 08:39 WBC 1.9 L* 1.8 L* (3.8-10.6) k/uL RBC 3.56 L 3.68 L (3.80-5.40) m/uL Hgb 10.0 L D 10.4 L (11.4-16.0) gm/dL Hct 30.6 L 32.1 L (34.0-46.0) % RDW 16.3 H (11.5-15.5) % Plt Count 77 L 75 L (150-450) k/uL Neutrophils # 1.2 L 1.1 L (1.3-7.7) k/uL Lymphocytes # 0.4 L 0.4 L (1.0-4.8) k/uL Chloride 108 H (98-107) mmol/L Glucose 107 H (74-99) mg/dL POC Glucose (mg/dL) (75-99) mg/dL Calcium 7.6 L (8.4-10.2) mg/dL 05/31/17 Range/Units 12:04 WBC (3.8-10.6) k/uL RBC (3.80-5.40) m/uL Hgb (11.4-16.0) gm/dL Hct (34.0-46.0) % RDW (11.5-15.5) % Plt Count (150-450) k/uL Neutrophils # (1.3-7.7) k/uL Lymphocytes # (1.0-4.8) k/uL Chloride (98-107) mmol/L Glucose (74-99) mg/dL POC Glucose (mg/dL) 148 H (75-99) mg/dL Calcium (8.4-10.2) mg/dL Microbiology - Last 24 Hours (Table) 05/30/17 00:48 Blood Culture - Preliminary Blood No Growth after 24 hours Assessment and Plan Assessment: #1 symptoms of shortness of breath with chest pressure as well as nausea and left upper quadrant pain #2 elevated d-dimer, VQ negative for PE #3 diabetes with hyperglycemia #4 Hypertension #5 family history of premature CAD #6 sinus tachycardia likely secondary to febrile illness, improved #7 Leukopenia Plan: From cardiology's perspective, continue telemetry monitoring for another 24 hours. Patient requires further workup for febrile illness and leukopenia. We will continue to follow the patient and provide further recommendations accordingly. GINSENG FARMER note has been reviewed, I agree with a documented findings and plan of care. Patient was seen and examined.
[2017-05-31 18:01] LABS: Glucose,Whole Blood 147 mg/dL (75-99)
[2017-05-31 20:09] LABS: Glucose,Whole Blood 190 mg/dL (75-99)
[2017-05-31] MEDS ORDERED: MAG HYDROX/AL HYDROX/SIMETH 30 ML CUP PO PRN (21:01)
[2017-05-31] MEDS: ATORVASTATIN 20 MG TAB PO SCH (21:02)
[2017-05-31 23:44] LABS: Glucose,Whole Blood 127 mg/dL (75-99)
[2017-06-01 02:25] LABS: Glucose,Whole Blood 95 mg/dL (75-99)
[2017-06-01 05:42] LABS: Glucose,Whole Blood 104 mg/dL (75-99)
[2017-06-01 06:17] LABS: Anisocytosis Slight; Basophils % (A) 0 %; Eosinophils # (A) 0.1 k/uL (0-0.7); Eosinophils % (A) 7 %; HGB 10.4 gm/dL (11.4-16.0); Hypochromasia Slight; Lymphocytes # (A) 0.7 k/uL (1.0-4.8); Lymphocytes % (A) 32 %; MCH 27.5 pg (25.0-35.0); MCHC 31.5 g/dL (31.0-37.0); MCV 87.2 fL (80.0-100.0); Mean Platelet Volume 7.7; Monocytes # (A) 0.1 k/uL (0-1.0); Monocytes % (A) 6 %; Neutrophils # (A) 1.1 k/uL (1.3-7.7); Neutrophils % (A) 52 %; RBC 3.78 m/uL (3.80-5.40); RDW 16.2 % (11.5-15.5); WBC 2.1 k/uL (3.8-10.6)
[2017-06-01 06:36] LABS: Anion Gap 8 mmol/L; Blood Urea Nitrogen 8 mg/dL (7-17); Calcium 8.2 mg/dL (8.4-10.2); Carbon Dioxide 25 mmol/L (22-30); Chloride 110 mmol/L (98-107); Glucose 108 mg/dL (74-99); Platelet Count 92 k/uL (150-450); Potassium 4.5 mmol/L (3.5-5.1); Sodium 143 mmol/L (137-145)
[2017-06-01] MEDS: glipiZIDE 5 MG TAB PO SCH ×2 (07:04→17:23)
[2017-06-01] MEDS: PANTOPRAZOLE 40 MG TABLET PO SCH (07:04)
[2017-06-01] MEDS: LISINOPRIL 10 MG TAB PO SCH (08:35)
[2017-06-01] MEDS: CHOLECALCIFEROL 1,000 UNIT TAB PO SCH (08:35)
[2017-06-01] MEDS: ASPIRIN 81 MG PO SCH (08:35)
[2017-06-01] MEDS: 0.9% NACL WITH KCL 20 MEQ/L 1,000 ML IV SCH (12:10)
[2017-06-01 12:14] LABS: Glucose,Whole Blood 129 mg/dL (75-99)
--- NOTE | 2017-06-01 15:22 | PN ---
PROGRESS NOTE Mrs. Gutierrez is a 52-year-old female who presented with symptoms of not feeling well and had a febrile episode. She is feeling better today. She is not having the same symptoms. Her breathing is stable. She denies any chest pain. She has no dizziness or palpitation. She denies any nausea. She continues to be at this time on aspirin 81 mg daily, Lipitor 20 mg daily, glipizide 5 mg twice a day, lisinopril 10 mg daily, metformin 1 g twice a day, and Protonix. PHYSICAL EXAMINATION: Blood pressure 106/60 with a heart rate in the 80s. LUNGS: Clear. Heart regular rate rhythm S1, S2. No S3. No rub. ABDOMEN: Soft, nontender. EXTREMITIES: No edema. LAB DATA: Revealed a white blood cell of 2.1 with a hemoglobin of 10.4, her platelets . Her white blood cell have improved compared with yesterday. Her BUN and creatinine 8 and 0.7. She had a ventilation perfusion scan done yesterday that showed no evidence of pulmonary embolism. IMPRESSION: 1. Febrile episode with severe leukopenia and starting to improve gradually. 2. History of hypertension. 3. Hyperlipidemia. 4. History of diabetes mellitus. RECOMMENDATION: From the cardiac standpoint, I will continue present therapy. Follow her blood pressure to see if we need to adjust her antihypertensive regimen. We will follow her lab data. I will obtain the input of the hematology service because of her significant leukopenia. MMODL / IJN: [id number] /
[2017-06-01] MEDS ORDERED: METHYL SALICYLATE/MENTHOL CREAM 5 OZ TOPICAL PRN (15:39)
[2017-06-01 17:13] LABS: Glucose,Whole Blood 112 mg/dL (75-99)
[2017-06-01] MEDS: ATORVASTATIN 20 MG TAB PO SCH (20:33)
[2017-06-01 20:51] LABS: Glucose,Whole Blood 157 mg/dL (75-99)
--- NOTE | 2017-06-01 21:38 | P.PN ---
Subjective Progress Note Date: 05/31/17 Principal diagnosis: Acute gastroenteritis and chest pain This is a history and physical on a 52-year-old white female with known history of diabetes who yesterday's started feeling tachycardic. She noticed this because of severe pain. She states her chest pressure. She was wearing her FITBIT and noticed heart rates in the 130s and 140s. Blood sugar was also quite elevated yesterday. This is somewhat unusual for the patient, to begin with. She states she had a new grandbaby in the family born yesterday so she is quite happy. There is no overt distress. She's been exercising normally until this past day. Because of her presentation with the severe chest pressure. Patient was febrile on his addition 100.7 T-max. Vision was also having nausea vomiting and diarrhea. The patient was admitted to rule out myocardial infraction with pulmonary embolus. The patient is sitting somewhat uncomfortably this morning a little bit anxious otherwise. 05/31/2017 Patient feels is better today. Serial troponins negative. VQ scan showed low probability for PE. Cdiff toxin and influenza negative. Today patient was found to have severe leukopenia and also thrombocytopenia. Hematology service has been consulted. Cardiology is following. No further workup recommended at this time. Diarrhea improving. Patient started to tolerating diet. Objective - Vital Signs Vital signs: Vital Signs Temp 96.1 F L 05/31/17 15:23 Pulse 93 05/31/17 15:23 Resp 17 05/31/17 15:23 BP 110/64 05/31/17 15:23 Pulse Ox 98 05/31/17 15:23 Intake & Output 05/30/17 05/31/17 05/31/17 18:59 06:59 18:59 Intake Total 500 1240 Balance 500 1240 Weight 104.3 kg Intake: Intake, IV Titration 1040 Amount 0.9% NaCl with KCl 20 Meq 640 /l 1,000 ml @ 80 mls/hr IV .[id number] [facility] Rx#: [id number] ACETAMINOPHEN IV (For NPO 400 ) 1,000 mg In Empty Bag 1 bag @ 400 mls/hr IVPB Q6HR [facility] Rx#:[id number] Oral 500 200 Other: Voiding Method Toilet # Voids 1 1 # Bowel Movements 2 - Exam PHYSICAL EXAMINATION: Patient is lying in the bed comfortably, no acute distress, awake alert and oriented.. HEENT: Normocephalic. Neck is supple. Pupils reactive. Nostrils clear. Oral cavity is moist. Ears reveal no drainage. Neck reveals no JVD, carotid bruits, or thyromegaly. CHEST EXAMINATION: Trachea is central. Symmetrical expansion. Lung craig clear to auscultation and percussion. CARDIAC: Normal S1, S2 with no gallops. No murmurs ABDOMEN: Soft. Bowel sounds normal. No organomegaly. No abdominal bruits. Extremities: reveal no edema. No clubbing or cyanosis Neurologically awake, alert, oriented x3 with well-coordinated movements. No focal deficits noted Skin: No rash or skin lesions. Psychiatric: Coperative. Nonsuicidal Musculoskeletal: No joint swelling or deformity. Normal range of motion. - Labs CBC & Chem 7: 06/01/17 05:24 06/01/17 05:24 Labs: Abnormal Lab Results - Last 24 Hours (Table) 05/30/17 05/30/17 05/31/17 Range/Units 16:35 20:55 00:05 WBC (3.8-10.6) k/uL RBC (3.80-5.40) m/uL Hgb (11.4-16.0) gm/dL Hct (34.0-46.0) % RDW (11.5-15.5) % Plt Count (150-450) k/uL Neutrophils # (1.3-7.7) k/uL Lymphocytes # (1.0-4.8) k/uL Chloride (98-107) mmol/L Glucose (74-99) mg/dL POC Glucose (mg/dL) 198 H 156 H 103 H (75-99) mg/dL Calcium (8.4-10.2) mg/dL 05/31/17 05/31/17 05/31/17 Range/Units 06:48 06:48 08:39 WBC 1.9 L* 1.8 L* (3.8-10.6) k/uL RBC 3.56 L 3.68 L (3.80-5.40) m/uL Hgb 10.0 L D 10.4 L (11.4-16.0) gm/dL Hct 30.6 L 32.1 L (34.0-46.0) % RDW 16.3 H (11.5-15.5) % Plt Count 77 L 75 L (150-450) k/uL Neutrophils # 1.2 L 1.1 L (1.3-7.7) k/uL Lymphocytes # 0.4 L 0.4 L (1.0-4.8) k/uL Chloride 108 H (98-107) mmol/L Glucose 107 H (74-99) mg/dL POC Glucose (mg/dL) (75-99) mg/dL Calcium 7.6 L (8.4-10.2) mg/dL 05/31/17 Range/Units 12:04 WBC (3.8-10.6) k/uL RBC (3.80-5.40) m/uL Hgb (11.4-16.0) gm/dL Hct (34.0-46.0) % RDW (11.5-15.5) % Plt Count (150-450) k/uL Neutrophils # (1.3-7.7) k/uL Lymphocytes # (1.0-4.8) k/uL Chloride (98-107) mmol/L Glucose (74-99) mg/dL POC Glucose (mg/dL) 148 H (75-99) mg/dL Calcium (8.4-10.2) mg/dL Microbiology - Last 24 Hours (Table) 05/30/17 00:48 Blood Culture - Preliminary Blood No Growth after 24 hours Assessment and Plan Assessment: Shortness of breath and chest pressure. Cardiac workup including serial EKGs and troponins negative. Fever with Nausea and diarrhea with left upper quadrant pain. Possible acute viral gastroenteritis. Improving now Splenomegaly. As the patient patient had thyromegaly before and was told it has improved previously but repeat ultrasound during this admission showed splenomegaly again. Severe neutropenia and thrombocytopenia. Possible splenic sequestration. Hematology consulted for further evaluation. Elevated d-dimer. VQ scan showed low probability for PE Hyperglycemia Diabetes type 2 Fibromyalgia hypertension family history of premature heart disease DVT prophylaxis. We will hold heparin due to thrombo-cytopenia Plan: Patient be continued on symptomatic management for nausea and chest pressure seems to be more likely musculoskeletal. Continue with the PPI. Will follow up CBC with differential tomorrow. Hematology has been consulted. Advance diet as tolerated. Continue with insulin dosing and titrated as needed. Further recommendations based on the clinical course. Prognosis is guarded. Time with Patient: Greater than 30
--- NOTE | 2017-06-01 21:41 | P.PN ---
Subjective Progress Note Date: 06/01/17 Principal diagnosis: Acute gastroenteritis and chest pain This is a history and physical on a 52-year-old white female with known history of diabetes who yesterday's started feeling tachycardic. She noticed this because of severe pain. She states her chest pressure. She was wearing her FITBIT and noticed heart rates in the 130s and 140s. Blood sugar was also quite elevated yesterday. This is somewhat unusual for the patient, to begin with. She states she had a new grandbaby in the family born yesterday so she is quite happy. There is no overt distress. She's been exercising normally until this past day. Because of her presentation with the severe chest pressure. Patient was febrile on his addition 100.7 T-max. Vision was also having nausea vomiting and diarrhea. The patient was admitted to rule out myocardial infraction with pulmonary embolus. The patient is sitting somewhat uncomfortably this morning a little bit anxious otherwise. 05/31/2017 Patient feels is better today. Serial troponins negative. VQ scan showed low probability for PE. Cdiff toxin and influenza negative. Today patient was found to have severe leukopenia and also thrombocytopenia. Hematology service has been consulted. Cardiology is following. No further workup recommended at this time. Diarrhea improving. Patient started to tolerating diet. 06/01/2017 Patient is improving slowly. Awaiting the right. Leukopenia slightly improved today. Overall patient feels better. Hematology has been consulted due to leukopenia and splenomegaly. No fever no chills. No acute overnight issues. All other review of systems negative except above Current medications reviewed Objective - Vital Signs Vital signs: Vital Signs Temp 98.2 F 06/01/17 15:42 Pulse 95 06/01/17 15:42 Resp 17 06/01/17 15:42 BP 119/74 06/01/17 15:42 Pulse Ox 99 06/01/17 15:42 Intake & Output 06/01/17 06/01/17 06/02/17 06:59 18:59 06:59 Intake Total 1120 470 Output Total 400 Balance 1120 70 Weight 104.1 kg Intake: Intake, IV Titration 720 Amount 0.9% NaCl with KCl 20 Meq 720 /l 1,000 ml @ 80 mls/hr IV .[id number] [facility] Rx#: [id number] Oral 400 470 Output: Urine 400 Other: Voiding Method Toilet # Voids 1 3 - Exam PHYSICAL EXAMINATION: Patient is lying in the bed comfortably, no acute distress, awake alert and oriented.. HEENT: Normocephalic. Neck is supple. Pupils reactive. Nostrils clear. Oral cavity is moist. Ears reveal no drainage. Neck reveals no JVD, carotid bruits, or thyromegaly. CHEST EXAMINATION: Trachea is central. Symmetrical expansion. Lung craig clear to auscultation and percussion. CARDIAC: Normal S1, S2 with no gallops. No murmurs ABDOMEN: Soft. Bowel sounds normal. No organomegaly. No abdominal bruits. Extremities: reveal no edema. No clubbing or cyanosis Neurologically awake, alert, oriented x3 with well-coordinated movements. No focal deficits noted Skin: No rash or skin lesions. Psychiatric: Coperative. Nonsuicidal Musculoskeletal: No joint swelling or deformity. Normal range of motion. - Labs CBC & Chem 7: 06/01/17 05:24 06/01/17 05:24 Labs: Abnormal Lab Results - Last 24 Hours (Table) 05/31/17 06/01/17 06/01/17 Range/Units 23:24 05:24 05:24 WBC 2.1 L (3.8-10.6) k/uL RBC 3.78 L (3.80-5.40) m/uL Hgb 10.4 L (11.4-16.0) gm/dL Hct 33.0 L (34.0-46.0) % RDW 16.2 H (11.5-15.5) % Plt Count 92 L (150-450) k/uL Neutrophils # 1.1 L (1.3-7.7) k/uL Lymphocytes # 0.7 L (1.0-4.8) k/uL Chloride 110 H (98-107) mmol/L Glucose 108 H (74-99) mg/dL POC Glucose (mg/dL) 127 H (75-99) mg/dL Calcium 8.2 L (8.4-10.2) mg/dL 06/01/17 06/01/17 06/01/17 Range/Units 05:40 11:46 17:05 WBC (3.8-10.6) k/uL RBC (3.80-5.40) m/uL Hgb (11.4-16.0) gm/dL Hct (34.0-46.0) % RDW (11.5-15.5) % Plt Count (150-450) k/uL Neutrophils # (1.3-7.7) k/uL Lymphocytes # (1.0-4.8) k/uL Chloride (98-107) mmol/L Glucose (74-99) mg/dL POC Glucose (mg/dL) 104 H 129 H 112 H (75-99) mg/dL Calcium (8.4-10.2) mg/dL 06/01/17 Range/Units 20:46 WBC (3.8-10.6) k/uL RBC (3.80-5.40) m/uL Hgb (11.4-16.0) gm/dL Hct (34.0-46.0) % RDW (11.5-15.5) % Plt Count (150-450) k/uL Neutrophils # (1.3-7.7) k/uL Lymphocytes # (1.0-4.8) k/uL Chloride (98-107) mmol/L Glucose (74-99) mg/dL POC Glucose (mg/dL) 157 H (75-99) mg/dL Calcium (8.4-10.2) mg/dL Microbiology - Last 24 Hours (Table) 05/30/17 00:48 Blood Culture - Preliminary Blood No Growth after 48 hours Assessment and Plan Assessment: Shortness of breath and chest pressure. Cardiac workup including serial EKGs and troponins negative. Patient has reproducible chest wall tenderness. Fever with Nausea and diarrhea with left upper quadrant pain. Possible acute viral gastroenteritis. Improving now Splenomegaly. As the patient patient had thyromegaly before and was told it has improved previously but repeat ultrasound during this admission showed splenomegaly again. Severe neutropenia and thrombocytopenia. Possible splenic sequestration. Improving. Hematology consulted for further evaluation. Elevated d-dimer. VQ scan showed low probability for PE Hyperglycemia Diabetes type 2 Fibromyalgia hypertension family history of premature heart disease DVT prophylaxis. We will hold heparin due to thrombo-cytopenia Plan: Patient be continued on symptomatic management for nausea and chest pressure seems to be more likely musculoskeletal. Continue with the PPI. Will follow up CBC with differential tomorrow. Hematology has been consulted. Advance diet as tolerated. Continue with insulin dosing and titrated as needed. Further recommendations based on the clinical course. Time with Patient: Greater than 30
[2017-06-01] MEDS: ALPRAZolam 0.5 MG TAB PO PRN (22:31)
[2017-06-02] MEDS ORDERED: IOHEXOL 350 MG/ML 25 ML BOTTLE (ORAL USE) PO PRN (00:13)
[2017-06-02 00:42] VITALS: RESP 18
[2017-06-02 02:05] LABS: Glucose,Whole Blood 110 mg/dL (75-99)
[2017-06-02 06:00] LABS: Glucose,Whole Blood 128 mg/dL (75-99)
[2017-06-02] MEDS: PANTOPRAZOLE 40 MG TABLET PO SCH (06:17)
[2017-06-02] MEDS: glipiZIDE 5 MG TAB PO SCH (06:17)
[2017-06-02 06:50] LABS: Anisocytosis Slight; Basophils % (A) 1 %; Eosinophils # (A) 0.2 k/uL (0-0.7); Eosinophils % (A) 5 %; HCT 34.3 % (34.0-46.0); HGB 10.6 gm/dL (11.4-16.0); Hypochromasia Slight; Lymphocytes % (A) 34 %; MCH 27.5 pg (25.0-35.0); MCHC 30.9 g/dL (31.0-37.0); MCV 88.8 fL (80.0-100.0); Mean Platelet Volume 7.8; Monocytes # (A) 0.2 k/uL (0-1.0); Monocytes % (A) 6 %; Neutrophils # (A) 1.4 k/uL (1.3-7.7); Neutrophils % (A) 51 %; RBC 3.86 m/uL (3.80-5.40); RDW 16.7 % (11.5-15.5); WBC 2.8 k/uL (3.8-10.6)
[2017-06-02 06:53] LABS: Platelet Count 92 k/uL (150-450)
[2017-06-02 07:17] LABS: Anion Gap 7 mmol/L; Blood Urea Nitrogen 11 mg/dL (7-17); Calcium 8.8 mg/dL (8.4-10.2); Carbon Dioxide 29 mmol/L (22-30); Chloride 107 mmol/L (98-107); Glucose 120 mg/dL (74-99); Magnesium 1.7 mg/dL (1.6-2.3); Potassium 4.1 mmol/L (3.5-5.1); Sodium 143 mmol/L (137-145)
--- NOTE | 2017-06-02 08:11 | P.PN ---
Subjective Progress Note Date: 06/02/17 Principal diagnosis: Chest pain with fever. This is a 52-year-old white female essentially admitted for chest pain with elevated d-dimer. The patient essentially had elevated lactic acid and was treated for sepsis. The patient feels much better since 3 days ago when she was admitted. However, she has had leukopenia. Oncology has been consulted. She states history of this about 5-7 years ago and had significant workup by Dr. Aparicio which did not reveal any overt pathology. Otherwise no new voiding difficulties. She is requesting discharge today. Objective - Vital Signs Vital signs: Vital Signs Temp 96.6 F L 06/02/17 04:00 Pulse 73 06/02/17 04:00 Resp 18 06/02/17 04:00 BP 108/61 06/02/17 04:00 Pulse Ox 98 06/02/17 04:00 Intake & Output 06/01/17 06/02/17 06/02/17 18:59 06:59 18:59 Intake Total 470 300 Output Total 400 600 Balance 70 -300 Weight 102.2 kg Intake: Oral 470 300 Output: Urine 400 600 Other: Voiding Method Toilet # Voids 3 1 - Constitutional General appearance: Present: average body habitus - EENT Eyes: Absent: abnormal pupil - Neck Neck: Absent: lymphadenopathy - Respiratory Respiratory: bilateral: CTA - Cardiovascular Rhythm: regular Heart sounds: normal: S1, S2 - Gastrointestinal General gastrointestinal: Present: soft. Absent: tenderness - Neurologic Neurologic: Absent: CNII-XII intact - Musculoskeletal Musculoskeletal: Present: gait normal - Labs CBC & Chem 7: 06/02/17 05:41 06/02/17 05:41 Labs: Abnormal Lab Results - Last 24 Hours (Table) 06/01/17 06/01/17 06/01/17 Range/Units 11:46 17:05 20:46 WBC (3.8-10.6) k/uL Hgb (11.4-16.0) gm/dL MCHC (31.0-37.0) g/dL RDW (11.5-15.5) % Plt Count (150-450) k/uL Glucose (74-99) mg/dL POC Glucose (mg/dL) 129 H 112 H 157 H (75-99) mg/dL 06/02/17 06/02/17 06/02/17 Range/Units 02:01 05:41 05:41 WBC 2.8 L (3.8-10.6) k/uL Hgb 10.6 L (11.4-16.0) gm/dL MCHC 30.9 L (31.0-37.0) g/dL RDW 16.7 H (11.5-15.5) % Plt Count 92 L (150-450) k/uL Glucose 120 H (74-99) mg/dL POC Glucose (mg/dL) 110 H (75-99) mg/dL 06/02/17 Range/Units 05:58 WBC (3.8-10.6) k/uL Hgb (11.4-16.0) gm/dL MCHC (31.0-37.0) g/dL RDW (11.5-15.5) % Plt Count (150-450) k/uL Glucose (74-99) mg/dL POC Glucose (mg/dL) 128 H (75-99) mg/dL Microbiology - Last 24 Hours (Table) 05/30/17 00:48 Blood Culture - Preliminary Blood No Growth after 72 hours Assessment and Plan (1) Altered glucose metabolism due to diabetes Current Visit: Yes Status: Acute Code(s): E11.9 - TYPE 2 DIABETES MELLITUS WITHOUT COMPLICATIONS SNOMED Code(s): 51541744 (2) Chest pain Current Visit: Yes Status: Acute Code(s): R07.9 - CHEST PAIN, UNSPECIFIED SNOMED Code(s): 71294241 (3) Elevated d-dimer Current Visit: Yes Status: Acute Code(s): R79.89 - OTHER SPECIFIED ABNORMAL FINDINGS OF BLOOD CHEMISTRY SNOMED Code(s): 391610010 (4) Febrile illness, acute Current Visit: Yes Status: Acute Code(s): R50.9 - FEVER, UNSPECIFIED SNOMED Code(s): 195601424 (5) Tachycardia Current Visit: Yes Status: Acute Code(s): R00.0 - TACHYCARDIA, UNSPECIFIED SNOMED Code(s): 1859163 Plan: I had a long discussion with the patient regarding her leukopenia. She is somewhat reluctant to have [place] biopsy. Await hematology input. Otherwise, await CBC and CMP results. Anticipate discharge in next 24 hours if cleared by oncology. Significant improvement is otherwise noted. Continue IV antibiotics Time with Patient: Less than 30
[2017-06-02] MEDS: ASPIRIN 81 MG PO SCH (08:17)
[2017-06-02] MEDS: LISINOPRIL 10 MG TAB PO SCH (08:17)
[2017-06-02] MEDS: CHOLECALCIFEROL 1,000 UNIT TAB PO SCH (08:17)
--- NOTE | 2017-06-02 08:46 | ECHOF ---
Referral Reason:chest pain MEASUREMENTS -------- HEIGHT: 182.9 cm WEIGHT: 96.2 kg BP: 126/73 RVIDd: 3.2 cm (< 3.3) IVSd: 1.0 cm (0.6 - 1.1) LVIDd: 4.0 cm (3.9 - 5.3) LVPWd: 1.0 cm (0.6 - 1.1) IVSs: 1.4 cm LVIDs: 2.7 cm LVPWs: 1.4 cm LA Diam: 3.5 cm (2.7 - 3.8) LAESV Index (A-L): 23.01 ml/m Ao Diam: 3.2 cm (2.0 - 3.7) AV Cusp: 2.0 cm (1.5 - 2.6) MV EXCURSION: 18.395 mm (> 18.000) MV EF SLOPE: 139 mm/s (70 - 150) EPSS: 0.9 cm MV E Kj: 1.38 m/s MV DecT: 109 ms MV A Kj: 0.78 m/s MV E/A Ratio: 1.76 FINDINGS -------- Resting tachycardia (HR>100bpm). This was a technically good study. The left ventricular size is normal. Left ventricular wall thickness is normal. Overall left vent ricular systolic function is normal with, an EF between 60 - 65 %. The right ventricle is normal in size. Normal LA size by volume 22+/-6 ml/m2. The right atrium is normal in size. There is mild aortic valve sclerosis. The mitral valve leaflets are mildly thickened. Trace tricuspid regurgitation present. The pulmonic valve was not well visualized. The aortic root size is normal. Normal inferior vena cava with normal inspiratory collapse consistent with estimated right atrial pre ssure of 5 mmHg. There is no pericardial effusion. CONCLUSIONS -------- 1. Resting tachycardia (HR>100bpm). 2. This was a technically good study. 3. The left ventricular size is normal. 4. Left ventricular wall thickness is normal. 5. Overall left ventricular systolic function is normal with, an EF between 60 - 65 %. 6. The right ventricle is normal in size. 7. Normal LA size by volume 22+/-6 ml/m2. 8. The right atrium is normal in size. 9. There is mild aortic valve sclerosis. 10. The mitral valve leaflets are mildly thickened. 11. Trace tricuspid regurgitation present. 12. The pulmonic valve was not well visualized. 13. The aortic root size is normal. 14. Normal inferior vena cava with normal inspiratory collapse consistent with estimated right atrial pressure of 5 mmHg. 15. There is no pericardial effusion. DROP FORGE OPERATOR: Rebecca Rivera RDCS
[2017-06-02] MEDS ORDERED: BARIUM SULFATE 450 ML ORAL.SUSP BOTTLE PO ONE ×2 (09:19→12:29)
[2017-06-02 11:38] LABS: Glucose,Whole Blood 156 mg/dL (75-99)
--- NOTE | 2017-06-02 12:01 | CONS ---
Date of service 06/01/2014 CONSULTATION REASON FOR CONSULTATION: Fever and splenomegaly. HISTORY OF PRESENT ILLNESS: The patient is a 52-year-old female who started getting sick on last Friday. Symptoms have been extremely weakness, tiredness and no energy. The patient says that she did have a new grand baby born the same day. Patient did not recall if she came across anybody who may have been sick with any illnesses. The patient noticed to have her heart rate running around 130 and she wears a Fitbit. Marathon nauseated and was complaining of some left lower ribcage to left upper abdominal pain, which was mild to moderate 5 to 6 out of 10 and no radiation. The patient denies any high-grade fever or rigors or chills. No diarrhea. With these symptoms, the patient presented to [facility] ER on the 30 May 2017. The patient did have a chest x-ray which was poor aspiration new compared to old exam, normal heart. No gross heart failure. On admission, the patient did have a low-grade fever 100.7; however, the patient has been afebrile since then. The patient did have a normal white count of 6.1 on admission. Subsequently has been down to 1.9 to 2.1 today. There is some component of thrombocytopenia with platelet count of 92, and mild anemia. The patient's further workup is including a UA that has been negative. She did have a stool for C. difficile which was negative. Influenza serology was negative. The patient did have an ultrasound of the abdomen, which has been suggestive of simple cyst left upper pole; no evidence of solid mas and splenomegaly measures 15.9 cm. Hence, ID was consulted for further recommendation regarding antibiotic therapy. Patient did mention that she did have splenomegaly history for a long time and does follow with Dr. Katherine Niño and Dr. Skinner in the outpatient setting. She did mention that she did have a CAT scan done about a year or so ago and at that time, she was told the spleen was not enlarged. REVIEW OF SYSTEMS: CONSTITUTIONAL: Positive for weakness and low-grade fever on admission. EYES: No complaint. ENT: No complaint. RESPIRATORY: As per HPI. CARDIOVASCULAR: As per HPI. GENITOURINARY: No complaint. GASTROINTESTINAL : As per HPI. MUSCULOSKELETAL: No complaint. INTEGUMENTARY: No complaint. PSYCHOLOGICAL: No complaint. ENDOCRINE: No complaint. NEUROLOGICAL: No complaint. PAST MEDICAL HISTORY: Significant for COPD, diabetes mellitus, fibromyalgia, hypertension, hyperlipidemia, renal insufficiency, Prakash syndrome, hypothyroidism. PAST SURGICAL HISTORY: Significant for back surgery, breast surgery, , cholecystectomy, hysterectomy. SOCIAL HISTORY: No history of smoking, drinking, or drug use. FAMILY HISTORY: Mother with history neurological disorder. Father had history of diabetes and congestive heart failure. ALLERGIES: Allergies to IODINE, LATEX and CODEINE. MEDICATIONS: Medications include the patient is currently on Maalox, Zyloprim, Xanax, aspirin , Lipitor, vitamin D3, colchicine, Flexeril, Glucotrol, Zestril, Imodium, Glucophage, Narcan, Zofran, and Protonix. PHYSICAL EXAMINATION: On examination, her blood pressure 108/61 with a pulse of 73, temperature of 98.2. She did have fever of 100.7 on admission. She is 97% on room air. General description is a middle-aged female up in the bed, in no distress. No tachypnea or accessory muscle for respiration use. HEENT examination shows slight pallor. No scleral icterus. Oral mucous membrane is dry. No pharyngeal erythema or thrush NECK: Trachea central. No thyromegaly. LUNGS: Unlabored breathing, clear to auscultation. No wheeze or crackle. HEART: S1, S2.Regular rate and rhythm. No murmurs. ABDOMEN: Soft. She is minimally tender in the left upper quadrant area. There was no guarding or rigidity. No organomegaly. EXTREMITIES: No edema of feet. SKIN EXAMINATION: No rashes, no masses palpable. NEUROLOGICAL: Patient is awake, alert, oriented x3. Mood and affect normal. LABS: Hemoglobin is 10.2, white count 2.8 with a BUN of 11, creatinine 0.75. Electrolytes have been normal. Influenza serology was negative. C difficile was negative. UA is negative. Ultrasound report as mentioned above. DIAGNOSTIC IMPRESSION AND PLAN: Patient admitted to the hospital with generalized weakness, no energy. Did have some left lower rib cage to the left upper abdominal pain. The patient noticed to have a low-grade fever on admission 100.7 that has subsequently resolved. She did have some gastrointestinal symptom of diarrhea. Stool for Clostridium difficile was negative and is currently resolved with Imodium. The patient with minimal tenderness left lower quadrant area with evidence of splenomegaly which patient says is chronic for her. With that in addition to the leukopenia and thrombocytopenia and anemia noticed underlying hematologic disorder needs to be ruled out or infection though clinically doubt bacterial infection. However will need to be workup for a viral infection such as CMV or EBV PLAN: 1. We will obtain a CT of abdomen and pelvis with oral contrast to make sure there is no evidence of any hepatomegaly or lymphadenopathy. 2. We will obtain a CMV and EBV serology. 3. Recommend obtaining Hematology/Oncology consultation for further evaluation of her underlying blood dyscrasia. She is known to Dr. Skinner. 4. We will follow up on the clinical condition as well as investigation and further adjustment of medication if needed. Thank you you for this consultation. Will follow this patient along with you. REKHA / YESICA: [id number] / MARC
[2017-06-02 12:33] VITALS: TEMP 98.6
[2017-06-02 12:35] VITALS: BP 121/65; PULSE 80
--- NOTE | 2017-06-02 13:05 | PN ---
PROGRESS NOTE Mrs. Gutierrez is a 52-year-old female who presented with abdominal and chest discomfort, had episode of sinus tachycardia. After admission, she had leukopenia that is starting to improve. After discussion with her today, she tells me that she had leukopenia in the past and has been followed by Dr. Martinez. She is feeling much better today. Her breathing is stable. She is denying any chest pain. No dizziness or palpitation. No nausea. She continues to be on aspirin 81 mg daily, Lipitor 20 mg daily, glipizide 5 mg twice a day, lisinopril 10 mg daily, metformin. PHYSICAL EXAMINATION: Blood pressure 121/60 with the heart rate in the 80s. LUNGS: Clear. HEART: Regular rate and rhythm. S1, S2. No S3. No rub. ABDOMEN: Soft, nontender. EXTREMITIES: No edema. IMPRESSION: 1. Tachycardia, resolved. 2. Leukopenia, improving. 3. Hypertension. 4. Hyperlipidemia. 5. Diabetes mellitus. RECOMMENDATION: From the cardiac standpoint, she should be able to be discharged home today and followed as an outpatient. MMODL / IJN: [id number] /
--- NOTE | 2017-06-02 14:17 | CT ---
EXAMINATION TYPE: CT abdomen pelvis wo con DATE OF EXAM: 06/02/2017 COMPARISON: July 21, 2015 HISTORY: splenomegaly r/o lymphoploferative disorder Examination of the solid and hollow viscera is limited given the lack of contrast. FINDINGS: LUNG BASES: No evidence for nodule. No evidence for infiltrate. LIVER/GB: Cholecystectomy clips are in place. No space-occupying hepatic lesion. PANCREAS: No pancreatic mass identified. No inflammatory process seen. SPLEEN: Spleen is enlarged at 15.2 cm craniocaudal dimension versus prior measurement of 16.4 cm. No intrasplenic lesions seen. ADRENALS: No adrenal nodules identified. No evidence for thickening. KIDNEYS: Hypoattenuating lesion left kidney is compatible with cysts. No nephrolithiasis. No hydronep hrosis. BOWEL: Appendix has a normal appearance. No evidence of bowel obstruction. No inflammatory process. Lymph nodes: No evidence for adenopathy greater than 1 cm. Abdominal aorta: Atheromatous changes seen. No evidence for aneurysm. Genital organs: Hysterectomy changes again noted.. Other: Severe degenerative disc disease L5-S1 L4-5. IMPRESSION: 1. Persistent but slightly improved splenomegaly. 2. No evidence for adenopathy. 3. Stable left renal cyst.
--- NOTE | 2017-06-02 15:04 | CDI ---
Last Revision, April 2017 Documentation Clarification Form Date: 06/02/2017 2:53:00 PM From: Janice Harrington RN, CCDS Admit Date: 05/30/2017 5:16:00 AM Patient Name: Joy Gutierrez Visit Number: [id number] ATTENTION: The Clinical Documentation Specialists (CDI) and [facility] Coding Staff appreciate your assistance in clarifying documentation. Please respond to the clarification below the line at the bottom and electronically sign. The CDI & [facility] Coding staff will review the response and follow-up if needed. Please note: Queries are made part of the Legal Health Record. If you have any questions, please contact the author of this message via ITS. Dr. Anirudh Bhandari A diagnosis of anemia lacks specificity to accurately reflect your patients severity of condition and clarification is needed. History/Risk Factors: Chronic spleenomegly, COPD, DM, Fibromyalgia, Hyperlipidemia, HTN, liver disease , thyroid disorder, Cushings, Clinical indicators: 06/02 ID Consult: "With that in addition to the leukopenia and thrombocytopenia and anemia noticed underlying." Hemoglobin: 14.2/10.4/10.4/10.6 Hematocrit: 41.6/32.1/33/34.3 Treatment: Feosol 325 mg PO QD 3L IVF Bolus followed by @ 100 cc/hr In order to capture the severity of condition, please clarify the type of anemia and etiology if known: Acute blood loss anemia Acute on chronic blood loss anemia Chronic blood loss anemia Iron deficiency anemia Unable to determine Other, please specify Please continue to document in your progress notes and discharge summary in order to capture severity of illness and risk of mortality. Include clinical findings that support your diagnosis. MTDD
--- NOTE | 2017-06-02 20:39 | P.DS ---
Providers Date of admission: 05/30/17 05:16 Attending physician: Anirudh Bhandari Consults: 05/30/17 07:28 Consult Physician Routine Consulting Provider: Danna Villalta Consult Reason/Comments: chest pain Do you want consulting provider notified?: Yes 06/01/17 15:02 Consult Physician Routine Consulting Provider: Fabricio Skinner Consult Reason/Comments: leukopenia Do you want consulting provider notified?: Yes 06/01/17 15:30 Consult Physician Routine Consulting Provider: Stefan Knight Consult Reason/Comments: englarged spleen Do you want consulting provider notified?: Yes Primary care physician: Anirudh Bhandari - Discharge Diagnosis(es) (1) Altered glucose metabolism due to diabetes Status: Acute (2) Chest pain Status: Acute (3) Elevated d-dimer Status: Acute (4) Febrile illness, acute Status: Acute (5) Tachycardia Status: Acute Hospital Course: This is a discharge summary on a 52-year-old white female essentially admitted for chest pressure. She is felt to have elevated d-dimer but has significant iodine allergy. VQ scan did not show history of or likely gonzalez of pulmonary embolus. She had significant GI distress. Workup concluded no infectious viral etiology that could be determined. Cardiology thought it was more infectious. She developed element of gastroenteritis. However during this time she has had recurrent neutropenia. This worked up about 5-7 years ago with no significant findings. Oncology was consulted. The patient was afebrile but had slightly elevated bili be C count 2.8 on discharge. The patient was reluctant to have bone marrow biopsy at this time and was discharged in stable condition to follow-up with me in about one week. Patient Condition at Discharge: Stable Plan - Discharge Summary Discharge Rx Participant: No New Discharge Prescriptions: Continue RX: Lisinopril [Zestril] 10 mg PO DAILY RX: metFORMIN HCL ER [Glucophage Xr] 500 mg PO DAILY PRN PRN Reason: Blood Sugar - High >150 RX: glipiZIDE XL [Glucotrol XL] 5 mg PO DAILY RX: Simvastatin [Zocor] 20 mg PO HS RX: Cholecalciferol [Vitamin D3] 4,000 mg PO DAILY RX: B Complex & C No.20/Folic Acid [Nephrocaps Softgel] 1 mg PO DAILY RX: ALPRAZolam [Xanax] 0.5 mg PO TID PRN PRN Reason: Anxiety RX: Zinc 509 mg PO DAILY PRN PRN Reason: when cold symptoms start RX: Sennosides [Senna] 25.8 tab PO HS RX: Cranberry Fruit Concentrate [Azo Cranberry] 25,000 mg PO DAILY RX: Ascorbic Acid [Vitamin C] 1,000 mg PO DAILY RX: Naproxen Sodium [Aleve] 220 mg PO DAILY PRN PRN Reason: back pain Discontinued Ubidecarenone [Co Q-10] 100 mg PO DAILY Discharge Medication List RX: Lisinopril [Zestril] 10 mg PO DAILY 09/17/13 [History] RX: metFORMIN HCL ER [Glucophage Xr] 500 mg PO DAILY PRN 09/17/13 [History] RX: B Complex & C No.20/Folic Acid [Nephrocaps Softgel] 1 mg PO DAILY 07/20/15 [ History] RX: Cholecalciferol [Vitamin D3] 4,000 mg PO DAILY 07/20/15 [History] RX: Simvastatin [Zocor] 20 mg PO HS 07/20/15 [History] RX: glipiZIDE XL [Glucotrol XL] 5 mg PO DAILY 07/20/15 [History] RX: ALPRAZolam [Xanax] 0.5 mg PO TID PRN 05/30/17 [History] RX: Ascorbic Acid [Vitamin C] 1,000 mg PO DAILY 05/30/17 [History] RX: Cranberry Fruit Concentrate [Azo Cranberry] 25,000 mg PO DAILY 05/30/17 [ History] RX: Naproxen Sodium [Aleve] 220 mg PO DAILY PRN 05/30/17 [History] RX: Sennosides [Senna] 25.8 tab PO HS 05/30/17 [History] RX: Zinc 509 mg PO DAILY PRN 05/30/17 [History] Follow up Appointment(s)/Referral(s): Danna Villalta MD [STAFF PHYSICIAN] - (Office will call with appointment time) Anirudh Bhandari MD [Primary Care Provider] - 06/06/17 2:10 pm (Friday) Patient Instructions/Handouts: Tachycardia (GEN) Discharge Disposition: HOME SELF-CARE
--- NOTE | 2017-06-02 22:11 | P.CONS ---
History of Present Illness - Reason for Consult Consult date: 06/02/17 pancytopenia with predominantly leukopenia - History of Present Illness the patient is a 52-year-old lady, who recommends the emergency room , complaining of palpitations, chest discomfort as well as upper abdominal discomfort that started a few hours previously. Heart rate was in the 130 to 140 range, due to sinus tachycardia. The patient also complaining of generally not feeling well, and associated nausea. She was evaluated for cardiac ischemia , as well as PE with negative results. Symptoms improved significantly with the hydration. He subsequently completed more predominantly of abdominal discomfort leading to CT scan of the abdomen and pelvis. This was negative other than showing evidence of splenomegaly. On admissions patient's white count of 6.1 and subsequently fell to 1.8. Has not increased spontaneously at 2.8. ANC remained above 1000. Platelet count admission was 129, and dropped into the 80-90 range. consult was therefore placed for further evaluation and recommendations multiple labs were reviewed in the EMR. The drop in white blood cells is comparatively knew she did have a value of 3.2 in 2014. platelet counts have actually been slightly lower than normal, in the 100-1 50,000 range since about 2013. the patient stated that she has actually had a long-standing history of low blood counts, especially white blood cells and platelets. She was previously evaluated by Dr. Martinez, and had an extensive workup which was negative. She she was found to have splenomegaly, as well as fatty liver. This was ultimately felt to be the cause. As her counts are overall in the safe range, it was felt that continued hematology follow-up was not required. Her last visit with Dr. Martinez was about 7 years ago per the patient. Review of Systems Constitutional: Reports malaise, Reports poor appetite Eyes: denies blurred vision, denies pain Ears: deny: decreased hearing, ear discharge, earache, tinnitus Ears, nose, mouth and throat: Denies headache, Denies sore throat Cardiovascular: Reports chest pain, Reports palpitations, Reports rapid heart beat, Reports shortness of breath Respiratory: Reports dyspnea Gastrointestinal: Reports abdominal pain, Reports nausea Genitourinary: Denies dysuria, Denies hematuria Musculoskeletal: Denies myalgias Integumentary: Denies pruritus, Denies rash Neurological: Reports weakness, Denies numbness Psychiatric: Denies anxiety, Denies depression Endocrine: Denies fatigue, Denies weight change Hematologic/Lymphatic: Reports as per HPI Past Medical History Past Medical History: COPD, Diabetes Mellitus, Fibromyalgia, Hyperlipidemia, Hypertension, Liver Disease, Renal Disease, Thyroid Disorder Additional Past Medical History / Comment(s): cushings, enlarged spleen, anemia History of Any Multi-Drug Resistant Organisms: None Reported Past Surgical History: Back Surgery, Breast Surgery, Section, Cholecystectomy, Hysterectomy Past Anesthesia/Blood Transfusion Reactions: No Reported Reaction Past Psychological History: No Psychological Hx Reported Smoking Status: Never smoker Past Alcohol Use History: None Reported Past Drug Use History: None Reported - Past Family History Mother Family Medical History: Neurologic Disorder Father Family Medical History: Cancer, Congestive Heart Failure (CHF), Diabetes Mellitus Medications and Allergies Home Medications Medication Instructions Recorded Confirmed Type Lisinopril [Zestril] 10 mg PO DAILY 09/17/13 05/30/17 History metFORMIN HCL ER [Glucophage Xr] 500 mg PO DAILY PRN 09/17/13 05/30/17 History B Complex & C No.20/Folic Acid 1 mg PO DAILY 07/20/15 05/30/17 History [Nephrocaps Softgel] Cholecalciferol [Vitamin D3] 4,000 mg PO DAILY 07/20/15 05/30/17 History Simvastatin [Zocor] 20 mg PO HS 07/20/15 05/30/17 History glipiZIDE XL [Glucotrol XL] 5 mg PO DAILY 07/20/15 05/30/17 History ALPRAZolam [Xanax] 0.5 mg PO TID PRN 05/30/17 05/30/17 History Ascorbic Acid [Vitamin C] 1,000 mg PO DAILY 05/30/17 05/30/17 History Cranberry Fruit Concentrate [Azo 25,000 mg PO DAILY 05/30/17 05/30/17 History Cranberry] Naproxen Sodium [Aleve] 220 mg PO DAILY PRN 05/30/17 05/30/17 History Sennosides [Senna] 25.8 tab PO HS 05/30/17 05/30/17 History Zinc 509 mg PO DAILY PRN 05/30/17 05/30/17 History Allergies Allergy/AdvReac Type Severity Reaction Status Date / Time iodine Allergy Anaphylaxis Verified 05/30/17 08:22 latex Allergy Swelling Verified 05/30/17 08:22 codeine AdvReac Nausea & Verified 05/30/17 08:22 Vomiting Physical Exam Vitals: Vital Signs Temp Pulse Resp BP Pulse Ox 06/02/17 12:00 80 18 121/65 97 06/02/17 08:00 98.6 F 92 18 120/68 96 06/02/17 04:00 96.6 F L 73 18 108/61 98 06/02/17 00:00 98.6 F 83 18 113/62 97 Intake and Output 06/02/17 06/02/17 06/02/17 06:59 14:59 22:59 Intake Total 300 180 Output Total 300 Balance 0 180 Intake: Oral 300 180 Output: Urine 300 Other: Voiding Method Toilet # Voids 1 1 Weight 102.2 kg - Constitutional General appearance: no acute distress - EENT Eyes: EOMI, PERRLA ENT: hearing grossly normal, normal oropharynx - Neck Neck: no lymphadenopathy Thyroid: bilateral: normal size - Respiratory Respiratory: bilateral: CTA - Cardiovascular Rhythm: regular Heart sounds: normal: S1, S2 - Gastrointestinal General gastrointestinal: normal bowel sounds, soft - Integumentary Integumentary: normal - Neurologic Neurologic: CNII-XII intact - Musculoskeletal Musculoskeletal: generalized weakness, strength equal bilaterally - Psychiatric Psychiatric: A&O x's 3, appropriate affect Results CBC & Chem 7: 06/02/17 05:41 06/02/17 05:41 Labs: Abnormal Lab Results - Last 24 Hours (Table) 06/02/17 06/02/17 06/02/17 Range/Units 02:01 05:41 05:41 WBC 2.8 L (3.8-10.6) k/uL Hgb 10.6 L (11.4-16.0) gm/dL MCHC 30.9 L (31.0-37.0) g/dL RDW 16.7 H (11.5-15.5) % Plt Count 92 L (150-450) k/uL Glucose 120 H (74-99) mg/dL POC Glucose (mg/dL) 110 H (75-99) mg/dL CMV IgG Ab (Non-Reactive) 06/02/17 06/02/17 06/02/17 Range/Units 05:41 05:58 11:34 WBC (3.8-10.6) k/uL Hgb (11.4-16.0) gm/dL MCHC (31.0-37.0) g/dL RDW (11.5-15.5) % Plt Count (150-450) k/uL Glucose (74-99) mg/dL POC Glucose (mg/dL) 128 H 156 H (75-99) mg/dL CMV IgG Ab Reactive H (Non-Reactive) Microbiology - Last 24 Hours (Table) 05/30/17 00:48 Blood Culture - Preliminary Blood No Growth after 72 hours Comments: VQ scan report reviewed. echocardiogram report reviewed Chest x-ray: report reviewed CT scan - abdomen: report reviewed CT scan - pelvis: report reviewed Assessment and Plan (1) Bicytopenia Narrative/Plan: patient actually had pancytopenia number drop in hemoglobin was comparatively mild. Drop in white blood cells was most marked, with change and platelet count second. Counts consistently remained in a safe range, and have shown spontaneous improvement. As noted this appears to be a chronic problem that has been investigated extensively in the past. This is felt to be due to chronic splenomegaly and sparing sequestration, as well as underlying fatty liver disease. CT scan confirmed the presence of splenomegaly. Review of previous imaging studies in the EMR showed similar findings. On presentation the patient's counts were at baseline. The reason for the acute drop is not clear, but could have been due to a viral syndrome, which is felt to be a possible expiration for her symptoms. As noted counts have shown spontaneous improvement towards her baseline. I will try to obtain old records and review results of previous workup. As counts have shown spontaneous improvement, additional workup is likely not needed from the hematology standpoint. The patient appears to have been quite stable over the years, and can continue follow-up with her PCP. She can have when necessary hematology follow-up, if her counts show persistent change, or fail to improve back to baseline. Status: Acute Code(s): D75.89 - OTHER SPECIFIED DISEASES OF BLOOD AND BLOOD- FORMING ORGANS SNOMED Code(s): 407723761
--- NOTE | 2017-06-02 22:20 | PN ---
PROGRESS NOTE DATE OF SERVICE: 06/02/2017. REASON FOR FOLLOW UP: Splenomegaly and leukopenia possible viral syndrome. INTERVAL HISTORY: The patient is seen on rounds this morning. The patient has been afebrile. The patient says she is feeling much better. Breathing comfortably. No chest pain. No nausea, no vomiting. No abdominal pain. No diarrhea. EXAMINATION: Blood pressure is 120/68 with a pulse of 92, temperature of 98.6. She is 96% on room air. General description is a middle aged female, lying in bed in no distress. Respiratory system unlabored breathing. Clear to auscultation anteriorly. Heart S1, S2. Regular rate and rhythm. Abdomen soft. No tenderness. LABS: Hemoglobin is 10.6, white count of 2.8 with a BUN of 11, creatinine 0.75. Culture has been negative. The patient did have a CT of abdominal and pelvis which did show slight improvement in her splenomegaly and no evidence of any hepatomegaly or lymphadenopathy. DIAGNOSTIC IMPRESSION AND PLAN: Patient with splenomegaly which is chronic for the patient and did have evidence of leukopenia and thrombocytopenia with question of acute viral syndrome, clinically doubt any bacterial infection. Her viral cultures still pending. No need for any systemic antibiotic therapy. Will need close outpatient followup. MMODL / IJN: [id number] /
== END 2017-06-02 16:13 | disposition home or self-care (01) | DRG 872 ==
LOC: EC 00:25 → 6SEL 05:16
PROVIDERS: ADMIT Family Medicine; ATTEND Family Medicine
DX: A41.9 Sepsis, unspecified organism (principal); E87.2 Acidosis; D61.818 Other pancytopenia; E11.65 Type 2 diabetes mellitus with hyperglycemia; K76.0 Fatty (change of) liver, not elsewhere classified; R16.1 Splenomegaly, not elsewhere classified; E78.5 Hyperlipidemia, unspecified; I10 Essential (primary) hypertension; E03.9 Hypothyroidism, unspecified; J44.9 Chronic obstructive pulmonary disease, unspecified; M79.7 Fibromyalgia; K52.9 Noninfective gastroenteritis and colitis, unspecified; Z79.84 Long term (current) use of oral hypoglycemic drugs; Z79.899 Other long term (current) drug therapy; Z86.711 Personal history of pulmonary embolism; Z90.710 Acquired absence of both cervix and uterus; Z88.5 Allergy status to narcotic agent; Z88.8 Allergy status to other drugs, medicaments and biological substances; Z91.040 Latex allergy status
CPT/HCPCS: 36415; 71046; 74176; 76705; 76770; 78582; 80048; 80053; 81003; 82150; 82550; 82553; 83605; 83690; 83735; 83880; 84443; 84484; 85025; 85379; 85610; 85730; 86644; 86645; 86664; 86665; 87040; 87324; 87502; 93005; 93306; 96361; 96365; 96366; 96367; 96375; 96376; 99285

== ENCOUNTER → 2019-05-25 | Outpatient (CLI) | payer BC ==
--- NOTE | 2019-05-25 17:42 | CT ---
EXAMINATION TYPE: CT brain wo con DATE OF EXAM: 05/25/2019 COMPARISON: 07/21/2015 INDICATION: headaches, dizziness, loss of balance DLP: 999.8 mGycm, Automated exposure control for dose reduction was used. CONTRAST: None CT of the brain is performed utilizing 3 mm thick sections through the posterior fossa and 3 mm thick sections through the remaining calvarium. Study is performed within 24 hours of arrival to the hosp [facility]. No abnormal hyperdensity is present to suggest an acute intracranial hemorrhage. No mass lesion is evident. No acute infarcts are evident. Ventricles and sulci are appropriate for the patient age. Paranasal sinuses and mastoid air cells within the [id number] are clear. IMPRESSIONS: 1. Normal CT Brain
== END | disposition home or self-care (01) ==
LOC: RADCTMAIN 16:12
PROVIDERS: ATTEND Family Medicine
DX: R26.9 Unspecified abnormalities of gait and mobility (principal)
CPT/HCPCS: 70450

== ENCOUNTER → 2020-09-13 | Outpatient (CLI) | payer BC ==
--- NOTE | 2020-09-13 19:45 | CONS ---
CONSULTATION DATE OF SERVICE: 09/13/2020 This 55-year-old lady has been evaluated in the sleep center for possible obstructive sleep apnea-hypopnea syndrome. HISTORY OF PRESENT ILLNESS/SLEEP-WAKE EVALUATION: Patient's usual sleep schedule is from 9 p.m. to 6:30 a.m. on working days and from 9 p.m. to 7 a.m. on weekends. She does have problems with falling asleep, although no TV in bedroom. She usually sleeps on the side position. She has awakenings with hiccups from sleep, possible snoring. In total, she wakes up from sleep up to 10 times with one episode of nocturia. No history of hypnagogic hallucinations, sleep paralysis or cataplexy. [place] Sleepiness Scale increased to 11, but the patient usually does not take any naps. Positive history of grinding teeth difficulties paying attention, positive history of irritability, depression, anxiety, claustrophobia, sexual dysfunction. PAST MEDICAL HISTORY: Positive for COPD, epilepsy, diabetes mellitus, anemia, Prakash's disease, depression. PAST SURGICAL HISTORY: C-sections x2, total hysterectomy, back surgery, cholecystectomy, right breast lumpectomy. MEDICATIONS: 1. Lipitor 40 mg once a day. 2. Glipizide 10 mg once a day. 3. Zoloft 50 mg once a day. 4. Xanax 0.5 mg. 5. 1.5 mg once a week. SOCIAL HISTORY: Negative for smoking or using alcohol. FAMILY HISTORY: Hypertension, heart problems, cancer. REVIEW OF SYSTEMS: No fevers. No double vision. No recent chest pain. No shortness of breath. No abdominal pain. No bleeding episodes. No blood in the urine. No seizure episodes. Difficulties initiating sleep, multiple awakenings from sleep, sleepiness during the day. PHYSICAL EXAMINATION: GENERAL: A pleasant lady without distress. VITAL SIGNS: BP 149/85, HR 95, RR 12, height 6 feet 0 inches, weight 232.6, temperature 97.9, oxygen saturation at room air 96%. Body mass index 31.4. HEENT: PERRLA, EOMI. Evaluation of oropharynx showed tongue protrudes midline. Low position of soft palate. Mallampati III. NECK: Supple. No JVD. Thyroid is not palpable. Neck measures 15 inches in circumference. LUNGS: Clear to percussion and to auscultation. Good air exchange. No wheezing or rhonchi. HEART: S1, S2 regular. No murmurs, gallops or rubs. ABDOMEN: Soft and nontender. Bowel sounds are present. No organomegaly appreciated. EXTREMITIES: No clubbing or cyanosis. 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 Cranial nerves 2 to 7 intact. There is no fasciculation or atrophy. noted. No focal deficits observed. IMPRESSION: 1. Multiple awakenings from sleep with hiccups, low position of soft palate, Mallampati III, sleepiness, [place] Sleepiness Scale increased to 11; obstructive sleep apnea-hypopnea syndrome. 2. History of chronic obstructive pulmonary disease. 3. History of epilepsy in the past. Episodes of seizures happen during the sleep time. 4. Diabetes mellitus. 5. History of anemia. 6. History of Callands's disease. 7. Depression. PLAN: 1. Home sleep apnea test to check patient's breathing during sleep. 2. CPAP/BiPAP titration if sleep study confirms obstructive sleep apnea-hypopnea syndrome. 3. Preferable position during sleep on the side. 4. No driving if patient feels any sleepiness. 5. I will see patient for follow up visit to explain results of testing and following plan. Thank you very much for referring this patient for consultation. Sincerely, Rajeev Cabral MD, PhD, FAASM Diplomat of [employer] Operator [facility] [place] MMODL / ANNN: [phone] /
== END | disposition home or self-care (01) ==
LOC: SLEEP 16:31
PROVIDERS: ATTEND Internal Medicine
DX: G47.33 Obstructive sleep apnea (adult) (pediatric) (principal); E11.9 Type 2 diabetes mellitus without complications; F32.9 Major depressive disorder, single episode, unspecified; Z87.09 Personal history of other diseases of the respiratory system; Z86.69 Personal history of other diseases of the nervous system and sense organs; Z86.2 Personal history of diseases of the blood and blood-forming organs and certain disorders involving the immune mechanism
CPT/HCPCS: 99211

== ENCOUNTER → 2021-02-19 | Outpatient (CLI) | payer BC | END | disposition home or self-care (01) | LOC: LABWHC1 15:15 | PROVIDERS: ATTEND Family Medicine | DX: Z11.52 Encounter for screening for COVID-19 (principal) | CPT/HCPCS: U0003; C9803; U0005 ==

== ENCOUNTER 2021-03-20 05:42 | Emergency (ER) | payer BC ==
[2021-03-20 05:55] VITALS: TEMP 99
[2021-03-20] MEDS ORDERED: IBUPROFEN 600 MG TAB PO STA (06:15)
[2021-03-20] MEDS ORDERED: ACETAMINOPHEN TAB 500 MG TAB PO STA (06:15)
[2021-03-20 06:26] VITALS: RESP 18
--- NOTE | 2021-03-20 06:28 | ED ---
General Adult HPI - General Chief complaint: Upper Respiratory Infection Stated complaint: COVID Symptoms Time Seen by Provider: 03/20/21 06:01 Source: patient Mode of arrival: ambulatory Limitations: no limitations - History of Present Illness Initial comments: 55-year-old female with a past medical history of COPD, diabetes mellitus, hyperlipidemia, hypertension, fibromyalgia presents to the emergency room for a chief complaint of not feeling well. Patient states for the past 4 or 5 days she has had congestion and a cough. States she has had fevers. She last took Motrin and Tylenol 8 hours ago. Patient states she is concerned she could have coronavirus. 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 Patient was short of breath when she woke up tonight and a coughing spell. She feels better now after doing a nebulizer.Patient has no other complaints at this time including shortness of br eath, chest pain, abdominal pain, nausea or vomiting, headache, or visual changes. - Related Data Home Medications Medication Instructions Recorded Confirmed lisinopriL [Zestril] 10 mg PO DAILY 09/17/13 05/30/17 metFORMIN HCL ER [Glucophage XR] 500 mg PO DAILY PRN 09/17/13 05/30/17 B Complex & C No.20/Folic Acid 1 mg PO DAILY 07/20/15 05/30/17 [Nephrocaps Softgel] Cholecalciferol [Vitamin D3 (10 4,000 mg PO DAILY 07/20/15 05/30/17 Mcg = 400 Iu)] Simvastatin [Zocor] 20 mg PO HS 07/20/15 05/30/17 glipiZIDE XL [Glucotrol XL] 5 mg PO DAILY 07/20/15 05/30/17 ALPRAZolam [Xanax] 0.5 mg PO TID PRN 05/30/17 05/30/17 Ascorbic Acid [Vitamin C] 1,000 mg PO DAILY 05/30/17 05/30/17 Cranberry Fruit Concentrate [Azo 25,000 mg PO DAILY 05/30/17 05/30/17 Cranberry] Naproxen Sodium [Aleve] 220 mg PO DAILY PRN 05/30/17 05/30/17 Sennosides [Senna] 25.8 tab PO HS 05/30/17 05/30/17 Zinc 509 mg PO DAILY PRN 05/30/17 05/30/17 Previous Rx's Medication Instructions Recorded Sulfamethox-Tmp 800-160Mg [Bactrim 1 tab PO Q12HR #14 tab 03/20/21 DS 800-160 mg] Allergies Allergy/AdvReac Type Severity Reaction Status Date / Time iodine Allergy Anaphylaxis Verified 03/20/21 05:55 latex Allergy Swelling Verified 03/20/21 05:55 codeine AdvReac Nausea & Verified 03/20/21 05:55 Vomiting Review of Systems ROS Statement: Those systems with pertinent positive or pertinent negative responses have been documented in the HPI. ROS Other: All systems not noted in ROS Statement are negative. Past Medical History Past Medical History: COPD, Diabetes Mellitus, Fibromyalgia, Hyperlipidemia, Hypertension, Liver Disease, Renal Disease, Thyroid Disorder Additional Past Medical History / Comment(s): cushings, enlarged spleen, anemia History of Any Multi-Drug Resistant Organisms: MRSA Date of last positivie culture/infection: 12/06 MDRO Source:: boils Past Surgical History: Back Surgery, Breast Surgery, Section, Cholecystectomy, Hysterectomy Past Anesthesia/Blood Transfusion Reactions: No Reported Reaction Past Psychological History: No Psychological Hx Reported Smoking Status: Never smoker Past Alcohol Use History: None Reported Past Drug Use History: None Reported - Past Family History Mother Family Medical History: Neurologic Disorder Father Family Medical History: Cancer, Congestive Heart Failure (CHF), Diabetes Mellitus General Exam Limitations: no limitations General appearance: alert, in no apparent distress Head exam: Present: atraumatic Eye exam: Present: normal appearance, PERRL, EOMI. Absent: scleral icterus, conjunctival injection ENT exam: Present: normal exam, mucous membranes moist Neck exam: Present: normal inspection, full ROM. Absent: tenderness Respiratory exam: Present: normal lung sounds bilaterally. Absent: respiratory distress, wheezes Cardiovascular Exam: Present: regular rate, normal rhythm, normal heart sounds GI/Abdominal exam: Present: soft, normal bowel sounds. Absent: distended, tenderness Neurological exam: Present: alert Course Vital Signs 03/20/21 03/20/21 03/20/21 05:52 06:22 07:29 Temperature 99 F 99 F Pulse Rate 118 H 116 H Respiratory 20 18 18 Rate Blood Pressure 129/82 136/76 O2 Sat by Pulse 97 99 Oximetry 03/20/21 08:51 Temperature Pulse Rate 103 H Respiratory Rate Blood Pressure O2 Sat by Pulse Oximetry Medical Decision Making - Medical Decision Making vitals are stable. Patient was initially tachycardic which I suspect was secondary to fever. Did go down to 99 with Tylenol. Patient did test positive for coronavirus and antibodies were given. She did have 4+ glucose in her urine, history of diabetes. Her glucose was 170. Chest x-ray shows no acute process. Patient is stable for discharge home. She also had an abscess to the left abdomen. I did attempt to incise and drain this without erythema material expelled. Patient states it is painful. She has been on clindamycin and Levaquin for different abscesses and they don't work. I will prescribe her Bactrim however she has an appointment at 2:30 with her doctor and she will make sure that her doctor approves this medication. She will return here for any worsening symptoms, otherwise follow up with primary care. - Lab Data Lab Results 03/20/21 03/20/21 03/20/21 Range/Units 06:20 06:51 07:47 POC Glucose (mg/dL) 170 H (75-99) mg/dL POC Glu Pipe Supervisor ID Jan, Gracie Urine Color Yellow Urine Appearance Clear (Clear) Urine pH 5.5 (5.0-8.0) Ur Specific [place] 1.027 (1.001-1.035) Urine Protein Trace H (Negative) Urine Glucose (UA) 4+ H (Negative) Urine Ketones Trace H (Negative) Urine Blood Negative (Negative) Urine Nitrite Negative (Negative) Urine Bilirubin Negative (Negative) Urine Urobilinogen <2.0 (<2.0) mg/dL Ur Leukocyte Esterase Negative (Negative) Coronavirus (PCR) Detected A (Not Detectd) Disposition Clinical Impression: COVID, Abscess Disposition: HOME SELF-CARE Condition: Good Instructions (If sedation given, give patient instructions): Coronavirus Disease 2019 (COVID-19), Abscess (ED) Additional Instructions: Take uprd-[id number] vitamins C, D, and zinc. Please take medications as directed. Please follow-up with your doctor in 1-2 days. Return to the emergency room for any worsening symptoms. Prescriptions: Sulfamethox-Tmp 800-160Mg [Bactrim DS 800-160 mg] 1 tab PO Q12HR #14 tab Is patient prescribed a controlled substance at d/c from ED?: No Referrals: Anirudh Bhandari MD [Primary Care Provider] - 1-2 days Time of Disposition: 09:04
[2021-03-20 07:16] LABS: Appearance,Urine Clear (Clear); Bilirubin,Urine Negative (Negative); Blood,Urine Negative (Negative); Color,Urine Yellow; Glucose,Urine (UA) 4+ (Negative); Ketones,Urine Trace (Negative); Leukocyte Esterase,Urine Negative (Negative); Nitrite,Urine Negative (Negative); PH, Urine 5.5 (5.0-8.0); Protein,Urine Trace (Negative); Specific Gravity,Urine 1.027 (1.001-1.035); Urobilinogen,Urine <2.0 mg/dL (<2.0)
[2021-03-20 07:31] VITALS: BP 136/76
[2021-03-20] MEDS ORDERED: SODIUM CHLORIDE 0.9% 50 ML IVPB ONE (07:45)
[2021-03-20 07:50] LABS: Glucose,Whole Blood 170 mg/dL (75-99)
[2021-03-20] MEDS ORDERED: CASIRIVIMAB (REGN10933) (EUA) 600 MG, IMDEVIMAB (REGN10987) (EUA) 600 MG in SODIUM CHLO... IVPB ONE (08:00)
--- NOTE | 2021-03-20 08:17 | XR ---
EXAMINATION TYPE: XR chest 2V DATE OF EXAM: 03/20/2021 COMPARISON: 05/30/2017 INDICATION: Cough TECHNIQUE: Frontal and lateral views of the chest are obtained. FINDINGS: The heart size is normal. The pulmonary vasculature is normal. The lungs are clear. IMPRESSION: 1. No acute pulmonary process.
[2021-03-20 08:51] VITALS: PULSE 103
== END 2021-03-20 09:45 | disposition home or self-care (01) ==
LOC: EC 05:42
DX: U07.1 COVID-19 (principal); L02.211 Cutaneous abscess of abdominal wall; J44.9 Chronic obstructive pulmonary disease, unspecified; E78.5 Hyperlipidemia, unspecified; E11.22 Type 2 diabetes mellitus with diabetic chronic kidney disease; I12.9 Hypertensive chronic kidney disease with stage 1 through stage 4 chronic kidney disease, or unspecified chronic kidney disease; N18.9 Chronic kidney disease, unspecified; Z79.899 Other long term (current) drug therapy; Z79.51 Long term (current) use of inhaled steroids; Z79.84 Long term (current) use of oral hypoglycemic drugs; Z88.5 Allergy status to narcotic agent; Z91.040 Latex allergy status; Z88.8 Allergy status to other drugs, medicaments and biological substances
CPT/HCPCS: 99283 ×2; 96365; 36415; 81003; 87635; 71046; M0243; Q0243

== ENCOUNTER 2021-11-29 14:38 | Emergency (ER) | payer BC ==
[2021-11-29 16:13] VITALS: BP 171/94; PULSE 114; RESP 16; TEMP 97.9
[2021-11-29] MEDS ORDERED: CEPHALEXIN 500 MG CAP PO STA (16:23)
[2021-11-29] MEDS ORDERED: SULFAMETHOX-TMP 800-160MG 1 EACH TAB PO STA (16:23)
--- NOTE | 2021-11-29 16:24 | ED ---
General Adult HPI - General Chief complaint: Skin/Abscess/Foreign Body Stated complaint: Sore on abd Time Seen by Provider: 11/29/21 15:58 Source: patient, RN notes reviewed, old records reviewed Mode of arrival: ambulatory Limitations: no limitations - History of Present Illness Initial comments: 56-year-old female presenting for evaluation of infection on the mons pubis. She's been on Levaquin for the past one week. She states that there was some initial improvement but these seem to be not improving further. She denies fever. She has multiple chronic medical conditions. - Related Data Home Medications Medication Instructions Recorded Confirmed lisinopriL [Zestril] 10 mg PO DAILY 09/17/13 05/30/17 metFORMIN HCL ER [Glucophage XR] 500 mg PO DAILY PRN 09/17/13 05/30/17 B Complex & C No.20/Folic Acid 1 mg PO DAILY 07/20/15 05/30/17 [Nephrocaps Softgel] Cholecalciferol [Vitamin D3 (10 4,000 mg PO DAILY 07/20/15 05/30/17 Mcg = 400 Iu)] Simvastatin [Zocor] 20 mg PO HS 07/20/15 05/30/17 glipiZIDE XL [Glucotrol XL] 5 mg PO DAILY 07/20/15 05/30/17 ALPRAZolam [Xanax] 0.5 mg PO TID PRN 05/30/17 05/30/17 Ascorbic Acid [Vitamin C] 1,000 mg PO DAILY 05/30/17 05/30/17 Cranberry Fruit Concentrate [Azo 25,000 mg PO DAILY 05/30/17 05/30/17 Cranberry] Naproxen Sodium [Aleve] 220 mg PO DAILY PRN 05/30/17 05/30/17 Sennosides [Senna] 25.8 tab PO HS 05/30/17 05/30/17 Zinc 509 mg PO DAILY PRN 05/30/17 05/30/17 Previous Rx's Medication Instructions Recorded Sulfamethox-Tmp 800-160Mg [Bactrim 1 tab PO Q12HR #14 tab 03/20/21 DS 800-160 mg] Allergies Allergy/AdvReac Type Severity Reaction Status Date / Time iodine Allergy Anaphylaxis Verified 11/29/21 16:12 latex Allergy Swelling Verified 11/29/21 16:12 codeine AdvReac Nausea & Verified 11/29/21 16:12 Vomiting Review of Systems ROS Statement: Those systems with pertinent positive or pertinent negative responses have been documented in the HPI. ROS Other: All systems not noted in ROS Statement are negative. Past Medical History Past Medical History: COPD, Diabetes Mellitus, Fibromyalgia, Hyperlipidemia, Hypertension, Liver Disease, Renal Disease, Thyroid Disorder Additional Past Medical History / Comment(s): cushings, enlarged spleen, anemia, History of Any Multi-Drug Resistant Organisms: MRSA Date of last positivie culture/infection: 12/06 MDRO Source:: boils Past Surgical History: Back Surgery, Breast Surgery, Section, Cholecystectomy, Hysterectomy Past Anesthesia/Blood Transfusion Reactions: No Reported Reaction Past Psychological History: No Psychological Hx Reported Smoking Status: Never smoker Past Alcohol Use History: None Reported Past Drug Use History: None Reported - Past Family History Mother Family Medical History: Neurologic Disorder Father Family Medical History: Cancer, Congestive Heart Failure (CHF), Diabetes Mellitus General Exam Limitations: no limitations General appearance: alert, in no apparent distress Head exam: Present: atraumatic, normocephalic Eye exam: Present: normal appearance, PERRL Neck exam: Present: normal inspection Respiratory exam: Present: normal lung sounds bilaterally. Absent: respiratory distress Cardiovascular Exam: Present: regular rate, normal rhythm GI/Abdominal exam: Present: soft. Absent: distended, tenderness, guarding External exam: Present: other ( swelling and cellulitis the mons pubis with a small less than 1 cm abscess which is fluctuant in the center.) Extremities exam: Present: normal inspection, normal capillary refill Back exam: Present: normal inspection Neurological exam: Present: alert, oriented X3, CN II-XII intact. Absent: motor sensory deficit Psychiatric exam: Present: normal affect, normal mood Course Vital Signs 11/29/21 16:10 Temperature 97.9 F Pulse Rate 114 H Respiratory 16 Rate Blood Pressure 171/94 O2 Sat by Pulse 98 Oximetry Procedures - Incision & Drainage Consent Obtained: verbal consent Site: vulva/vagina I&D Cleaning Method: Chloroprep Sterile Field Used?: No Needle Aspiration Performed?: Yes Irrigation Performed?: No I&D Drainage Obtained: Pus, Blood Culture Obtained?: No Patient Tolerated Procedure: well Medical Decision Making - Medical Decision Making 56-year-old female with small abscess to the mons pubis less than 1 cm with some minimal surrounding cellulitis. Patient currently on Levaquin. I was able to kneel aspirate this subcentimeter fluctuant abscess with some purulent drainage and blood. Patient tolerates this procedure well. I did initiate Keflex and Bactrim to cover for MRSA. I did offer IV antibiotics lab testing and further evaluation including the possibility of admission. Patient declines at this time. She prefers a trial of new oral antibiotics with strict return parameters. Her family member are in healthcare and she is agreeable with close observation. Disposition Clinical Impression: Cellulitis, Abscess Disposition: HOME SELF-CARE Condition: Fair Instructions (If sedation given, give patient instructions): Cellulitis (ED), Abscess (ED) Is patient prescribed a controlled substance at d/c from ED?: No Referrals: Anirudh Bhandari MD [Primary Care Provider] - 1-2 days Time of Disposition: 16:24
== END 2021-11-29 17:00 | disposition home or self-care (01) ==
LOC: EC 14:38
DX: N76.4 Abscess of vulva (principal); N76.2 Acute vulvitis; E11.9 Type 2 diabetes mellitus without complications; J44.9 Chronic obstructive pulmonary disease, unspecified; I10 Essential (primary) hypertension; M79.7 Fibromyalgia; E78.5 Hyperlipidemia, unspecified; Z88.8 Allergy status to other drugs, medicaments and biological substances; Z91.040 Latex allergy status; Z88.5 Allergy status to narcotic agent; Z79.899 Other long term (current) drug therapy; Z79.84 Long term (current) use of oral hypoglycemic drugs
CPT/HCPCS: 56405; 99282

== ENCOUNTER → 2021-11-30 | Outpatient (CLI) | payer BC ==
--- NOTE | 2021-11-30 08:11 | CT ---
EXAMINATION TYPE: CT brain wo con CT DLP: 945.5 mGycm, Automated exposure control for dose reduction was used. DATE OF EXAM: 11/30/2021 8:00 AM COMPARISON: Prior CT Brain from 05/25/2019. CLINICAL INDICATION:Female, 56 years old with history of G44.52 Chronic Headache, chronic VIGIL TECHNIQUE: Brain: Multiple axial CT images of the brain were obtained without IV contrast. FINDINGS: Brain: Extra-axial spaces: No abnormal extra-axial fluid collections. Ventricular system: Within normal limits Cerebral parenchyma: No acute intraparenchymal hemorrhage or mass effect. The quevedo-white junction is well differentiated. Cerebellum: Unremarkable. Mass effect: No evidence of midline shift. Intracranial vasculature: unremarkable Soft tissues: Normal. Calvarium/osseous structures: No depressed skull fracture. Paranasal sinuses and mastoid air cells: Clear Visualized orbits: Orbital contents are intact. IMPRESSION: No acute intracranial process.
== END | disposition home or self-care (01) ==
LOC: RADCTMAIN 07:28
PROVIDERS: ATTEND Family Medicine
DX: G44.52 New daily persistent headache (NDPH) (principal)
CPT/HCPCS: 70450

== ENCOUNTER → 2022-01-11 | Outpatient (CLI) | payer BC ==
--- NOTE | 2022-01-11 14:35 | XR ---
EXAMINATION TYPE: XR toes RT DATE OF EXAM: 01/11/2022 COMPARISON: None HISTORY: Pain right great toe TECHNIQUE: 3 views right great toe FINDINGS: There is an oblique fracture through the proximal portion lateral aspect distal phalanx rig ht great toe. This has intra-articular extension. No additional fractures are evident. Soft tissues are normal. IMPRESSION: 1. Oblique fracture lateral base distal phalanx with intra-articular extension right great toe.
--- NOTE | 2022-01-11 14:37 | XR ---
EXAMINATION TYPE: XR foot complete RT DATE OF EXAM: 01/11/2022 COMPARISON: None HISTORY: Pain right great toe TECHNIQUE: 3 view right foot FINDINGS: There is an oblique fracture through the proximal portion lateral aspect distal phalanx right great t oe. This has intra-articular extension. There is varus deformity of the distal fourth and fifth digits. No additional fractures are identifi ed. Soft tissues appear normal. Joint spaces are preserved. Plantar and Achilles tendon calcaneal najma l spurs are present. Follow up exams can be performed 7-10 days from acute trauma for unaccounted continued pain. IMPRESSION: 1. Oblique fracture proximal portion lateral aspect distal phalanx right great toe with intra-articu lar extension.
== END | disposition home or self-care (01) ==
LOC: RADXRMAIN 13:58
PROVIDERS: ATTEND Family Medicine
DX: M79.674 Pain in right toe(s) (principal); M79.671 Pain in right foot

== ENCOUNTER 2022-02-12 07:58 | Emergency (ER) | payer BC ==
[2022-02-12 08:07] VITALS: RESP 18
--- NOTE | 2022-02-12 08:15 | ED ---
Fall HPI - General Chief Complaint: Fall Stated Complaint: Fall, lt arm injury Time Seen by Provider: 02/12/22 08:09 Source: patient, RN notes reviewed Mode of arrival: ambulatory Limitations: no limitations - History of Present Illness Initial Comments: This is a 56-year-old female presents emergency Department chief complaint of left elbow, arm injury. Patient states that she tripped on her to sepsis morning her porch. Patient complains of abdominal pain, swelling or rates down her arm. No head injury no loss conscious denies any other injuries. Patient is left-hand dominant. Patient states she has no lacerations no abrasions. - Related Data Home Medications Medication Instructions Recorded Confirmed lisinopriL [Zestril] 10 mg PO DAILY 09/17/13 05/30/17 metFORMIN HCL ER [Glucophage XR] 500 mg PO DAILY PRN 09/17/13 05/30/17 B Complex & C No.20/Folic Acid 1 mg PO DAILY 07/20/15 05/30/17 [Nephrocaps Softgel] Cholecalciferol [Vitamin D3 (10 4,000 mg PO DAILY 07/20/15 05/30/17 Mcg = 400 Iu)] Simvastatin [Zocor] 20 mg PO HS 07/20/15 05/30/17 glipiZIDE XL [Glucotrol XL] 5 mg PO DAILY 07/20/15 05/30/17 ALPRAZolam [Xanax] 0.5 mg PO TID PRN 05/30/17 05/30/17 Ascorbic Acid [Vitamin C] 1,000 mg PO DAILY 05/30/17 05/30/17 Cranberry Fruit Concentrate [Azo 25,000 mg PO DAILY 05/30/17 05/30/17 Cranberry] Naproxen Sodium [Aleve] 220 mg PO DAILY PRN 05/30/17 05/30/17 Sennosides [Senna] 25.8 tab PO HS 05/30/17 05/30/17 Zinc 509 mg PO DAILY PRN 05/30/17 05/30/17 Previous Rx's Medication Instructions Recorded Sulfamethox-Tmp 800-160Mg [Bactrim 1 tab PO Q12HR #14 tab 03/20/21 DS 800-160 mg] Cephalexin [Keflex] 500 mg PO QID 10 Days #40 cap 11/29/21 Sulfamethox-Tmp 800-160Mg [Bactrim 1 tab PO Q12HR #28 tab 11/29/21 DS 800-160 mg] Allergies Allergy/AdvReac Type Severity Reaction Status Date / Time iodine Allergy Anaphylaxis Verified 02/12/22 08:08 latex Allergy Swelling Verified 02/12/22 08:08 codeine AdvReac Nausea & Verified 02/12/22 08:08 Vomiting Review of Systems ROS Statement: Those systems with pertinent positive or pertinent negative responses have been documented in the HPI. ROS Other: All systems not noted in ROS Statement are negative. Past Medical History Past Medical History: COPD, Diabetes Mellitus, Fibromyalgia, Hyperlipidemia, Hypertension, Liver Disease, Renal Disease, Thyroid Disorder Additional Past Medical History / Comment(s): cushings, enlarged spleen, anemia, History of Any Multi-Drug Resistant Organisms: MRSA Date of last positivie culture/infection: 12/06 MDRO Source:: boils Past Surgical History: Back Surgery, Breast Surgery, Section, Cholecystectomy, Hysterectomy Past Anesthesia/Blood Transfusion Reactions: No Reported Reaction Past Psychological History: No Psychological Hx Reported Smoking Status: Never smoker Past Alcohol Use History: None Reported Past Drug Use History: None Reported - Past Family History Mother Family Medical History: Neurologic Disorder Father Family Medical History: Cancer, Congestive Heart Failure (CHF), Diabetes Mellitus General Exam Limitations: no limitations General appearance: alert, in no apparent distress Head exam: Present: atraumatic, normocephalic, normal inspection Eye exam: Present: normal appearance, PERRL, EOMI. Absent: scleral icterus, conjunctival injection, periorbital swelling ENT exam: Present: normal exam, mucous membranes moist Neck exam: Present: normal inspection, full ROM. Absent: tenderness, meningismus, lymphadenopathy Respiratory exam: Present: normal lung sounds bilaterally. Absent: respiratory distress, wheezes, rales, rhonchi, stridor Cardiovascular Exam: Present: regular rate, normal rhythm, normal heart sounds. Absent: systolic murmur, diastolic murmur, rubs, gallop, clicks Extremities exam: Present: other (Left elbow there is moderate swelling, tenderness palpation, pain with range of motion neurovascular intact no distal forearm tenderness no proximal humeral tenderness remaining extremity exam within normal limits) Neurological exam: Present: alert, oriented X3 Course Vital Signs 02/12/22 08:03 Temperature 98.1 F Pulse Rate 94 Respiratory 18 Rate Blood Pressure 138/85 O2 Sat by Pulse 99 Oximetry Medical Decision Making - Medical Decision Making 56-year-old female presented from for fall, left elbow pain x-ray does not show an acute fracture no abnormal fat pad sign. Patient is left-hand contusion will be discharged in stable condition return parameters were discussed. Disposition Clinical Impression: Fall, Contusion of left arm Disposition: HOME SELF-CARE Condition: Stable Instructions (If sedation given, give patient instructions): Contusion in Adults (ED) Additional Instructions: Please return to the Emergency Department if symptoms worsen or any other concerns. Is patient prescribed a controlled substance at d/c from ED?: No Referrals: Anirudh Bhandari MD [Primary Care Provider] - 1-2 days Time of Disposition: 08:44
--- NOTE | 2022-02-12 08:34 | XR ---
EXAMINATION TYPE: XR elbow complete LT DATE OF EXAM: 02/12/2022 CLINICAL HISTORY: pain TECHNIQUE: Frontal, lateral and oblique images of the left elbow are obtained. COMPARISON: None. FINDINGS: There is no acute fracture/dislocation evident of the elbow. No abnormal fat pad signs ar e seen. The overlying soft tissue appears unremarkable. IMPRESSION: There is no acute fracture or dislocation of the elbow. ICD 10 NO FRACTURE, INITIAL EVALUATION
[2022-02-12 09:11] VITALS: BP 130/79; PULSE 88; TEMP 97.9
== END 2022-02-12 09:11 | disposition home or self-care (01) ==
LOC: EC 07:58
DX: S40.022A Contusion of left upper arm, initial encounter (principal); J44.9 Chronic obstructive pulmonary disease, unspecified; E11.9 Type 2 diabetes mellitus without complications; E78.5 Hyperlipidemia, unspecified; E07.9 Disorder of thyroid, unspecified; I12.9 Hypertensive chronic kidney disease with stage 1 through stage 4 chronic kidney disease, or unspecified chronic kidney disease; N18.9 Chronic kidney disease, unspecified; Z91.041 Radiographic dye allergy status; Z91.040 Latex allergy status; Z88.5 Allergy status to narcotic agent; Z79.84 Long term (current) use of oral hypoglycemic drugs; Z79.899 Other long term (current) drug therapy; W01.0XXA Fall on same level from slipping, tripping and stumbling without subsequent striking against object, initial encounter
CPT/HCPCS: 99284

== ENCOUNTER → 2022-08-23 | Outpatient (CLI) | payer BC ==
[2022-08-23 15:21] LABS: Basophils # (A) 0.04 X 10*3/uL (0.00-0.10); Basophils % (A) 0.7 %; Eosinophils # (A) 0.34 X 10*3/uL (0.04-0.35); Eosinophils % (A) 5.6 %; HCT 43.6 % (37.2-46.3); HGB 13.4 g/dL (12.0-15.0); Immature Grans, Automated 0.2 %; Lymphocytes # (A) 0.97 X 10*3/uL (0.90-5.00); MCH 26.6 pg (27.0-32.0); MCHC 30.7 g/dL (32.0-37.0); MCV 86.7 fL (80.0-97.0); Mean Platelet Volume 10.9 fL (9.5-12.2); Monocytes # (A) 0.34 X 10*3/uL (0.20-1.00); Monocytes % (A) 5.6 %; NRBC Per 100 WBC 0 /100 WBCS (0.0-0.0); Neutrophils # (A) 4.36 X 10*3/uL (1.80-7.70); Neutrophils % (A) 71.9 %; Platelet Count 131 X 10*3/uL (140-440); RBC 5.03 X 10*6/uL (4.10-5.20); RDW 16.4 % (11.5-14.5); WBC 6.06 X 10*3/uL (4.50-10.00)
[2022-08-23 15:53] LABS: Erythrocyte Sedimentation Rate 2 mm/Hr (0-30)
[2022-08-23 16:39] LABS: ALT 32 U/L (8-44); AST 31 U/L (13-35); African American GFR (CKD) 89.5 (60.0-200.0); Albumin 4.6 g/dL (3.8-4.9); Albumin/Globulin Ratio 2.08 (1.60-3.17); Alkaline Phosphatase 93 U/L (41-126); BUN/Creat Ratio 13.25 Ratio (12.00-20.00); C Reactive Protein <0.30 mg/dL (0.00-0.80); Calcium 9.6 mg/dL (8.7-10.3); Carbon Dioxide 25.5 mmol/L (20.0-27.5); Chloride 102 mmol/L (96-109); Chol/HDL Ratio 2.98 Ratio; Globulin 2.2 g/dL (1.6-3.3); Glucose 140 mg/dL (70-110); LDL Cholesterol,Calculated 29.4 mg/dL (0.0-131.0); Non-African American GFR(CKD) 77.2 (60.0-200.0); Potassium 4.8 mmol/L (3.5-5.5); Sodium 141 mmol/L (135-145); Total Protein 6.8 g/dL (6.2-8.2)
== END | disposition home or self-care (01) ==
LOC: LABWHC1 08:32
PROVIDERS: ATTEND Family Medicine
DX: Z00.00 Encounter for general adult medical examination without abnormal findings (principal); I10 Essential (primary) hypertension; E78.5 Hyperlipidemia, unspecified; E11.319 Type 2 diabetes mellitus with unspecified diabetic retinopathy without macular edema; E23.7 Disorder of pituitary gland, unspecified
CPT/HCPCS: 36415; 80053; 80061; 82607; 82728; 83036; 83921; 84439; 84443; 85025; 85652; 86140

== ENCOUNTER 2023-10-13 11:02 | Emergency (ER) | payer BC, MEDICARE ==
[2023-10-13 11:10] VITALS: TEMP 98.2
--- NOTE | 2023-10-13 11:27 | ED ---
General Adult HPI - General Chief complaint: ENT Stated complaint: Pain, swelling on R side of face Time Seen by Provider: 10/13/23 11:13 Source: patient, RN notes reviewed, old records reviewed Mode of arrival: ambulatory Limitations: no limitations - History of Present Illness Initial comments: 58-year-old female presenting for evaluation of right-sided facial swelling. Patient had a pimple at the corner of the mouth right side upper lip which she popped yesterday. She developed swelling in this region and erythema. She also reports a sore throat over the past 5 days. No difficulty breathing no difficulty swallowing. Patient is a diabetic. - Related Data Home Medications Medication Instructions Recorded Confirmed lisinopriL [Zestril] 10 mg PO DAILY 09/17/13 05/30/17 metFORMIN HCL ER [Glucophage XR] 500 mg PO DAILY PRN 09/17/13 05/30/17 B Complex & C No.20/Folic Acid 1 mg PO DAILY 07/20/15 05/30/17 [Nephrocaps Softgel] Cholecalciferol [Vitamin D3 (10 4,000 mg PO DAILY 07/20/15 05/30/17 Mcg = 400 Iu)] Simvastatin [Zocor] 20 mg PO HS 07/20/15 05/30/17 glipiZIDE XL [Glucotrol XL] 5 mg PO DAILY 07/20/15 05/30/17 ALPRAZolam [Xanax] 0.5 mg PO TID PRN 05/30/17 05/30/17 Ascorbic Acid [Vitamin C] 1,000 mg PO DAILY 05/30/17 05/30/17 Cranberry Fruit Concentrate [Azo 25,000 mg PO DAILY 05/30/17 05/30/17 Cranberry] Naproxen Sodium [Aleve] 220 mg PO DAILY PRN 05/30/17 05/30/17 Sennosides [Senna] 25.8 tab PO HS 05/30/17 05/30/17 Zinc 509 mg PO DAILY PRN 05/30/17 05/30/17 Previous Rx's Medication Instructions Recorded Sulfamethox-Tmp 800-160Mg [Bactrim 1 tab PO Q12HR #14 tab 03/20/21 DS 800-160 mg] Cephalexin [Keflex] 500 mg PO QID 10 Days #40 cap 11/29/21 Sulfamethox-Tmp 800-160Mg [Bactrim 1 tab PO Q12HR #28 tab 11/29/21 DS 800-160 mg] Cephalexin [Keflex] 500 mg PO Q6HR 10 Days #40 cap 10/13/23 Sulfamethox-Tmp 800-160Mg [Bactrim 1 tab PO Q12HR 10 Days #20 tab 10/13/23 DS 800-160 mg] Allergies Allergy/AdvReac Type Severity Reaction Status Date / Time iodine Allergy Anaphylaxis Verified 02/12/22 08:08 latex Allergy Swelling Verified 02/12/22 08:08 codeine AdvReac Nausea & Verified 02/12/22 08:08 Vomiting Review of Systems ROS Statement: Those systems with pertinent positive or pertinent negative responses have been documented in the HPI. ROS Other: All systems not noted in ROS Statement are negative. Past Medical History Past Medical History: COPD, Diabetes Mellitus, Fibromyalgia, Hyperlipidemia, Hypertension, Liver Disease, Renal Disease, Thyroid Disorder Additional Past Medical History / Comment(s): cushings, enlarged spleen, anemia, History of Any Multi-Drug Resistant Organisms: MRSA Date of last positivie culture/infection: 12/06 MDRO Source:: boils Past Surgical History: Back Surgery, Breast Surgery, Section, Cholecystectomy, Hysterectomy Past Anesthesia/Blood Transfusion Reactions: No Reported Reaction Past Psychological History: No Psychological Hx Reported Smoking Status: Never smoker Past Alcohol Use History: None Reported Past Drug Use History: None Reported - Past Family History Mother Family Medical History: Neurologic Disorder Father Family Medical History: Cancer, Congestive Heart Failure (CHF), Diabetes Mellitus General Exam Limitations: no limitations General appearance: alert, in no apparent distress Head exam: Present: atraumatic, normocephalic Eye exam: Present: normal appearance, PERRL ENT exam: Present: TM's normal bilaterally, other (No tooth tenderness, no drainable abscess. There is mild facial swelling on the right with erythema surrounding a folliculitis). Absent: normal oropharynx (No pharyngeal swelling, no tonsillar exudate, mild erythema) Cardiovascular Exam: Present: regular rate, normal rhythm GI/Abdominal exam: Present: soft. Absent: distended, tenderness Extremities exam: Present: normal inspection Neurological exam: Present: alert, oriented X3, CN II-XII intact. Absent: motor sensory deficit Psychiatric exam: Present: normal affect, normal mood Skin exam: Present: erythema (Facial cellulitis surrounding folliculitis) Course Vital Signs 10/13/23 11:06 Temperature 98.2 F Pulse Rate 110 H Respiratory 20 Rate Blood Pressure 170/99 O2 Sat by Pulse 98 Oximetry Medical Decision Making - Medical Decision Making Was pt. sent in by a medical professional or institution (ODILIA Fitch, [employer], urgent care, hospital, or assisted...) When possible be specific @ -No Did you speak to anyone other than the patient for history (EMS, parent, family, police, friend...)? What history was obtained from this source @ -No Did you review nursing and triage notes (agree or disagree)? Why? @ -I reviewed and agree with nursing and triage notes Were old charts reviewed (outside hosp., previous admission, EMS record, old EKG, old radiological studies, urgent care reports/EKG's, assisted records)? Report findings @ -No old charts were reviewed Differential Diagnosis dental abscess, Danny's angina, facial cellulitis, pharyngitis, peritonsillar abscess, retropharyngeal abscess EKG interpreted by me (3pts min.). @ -As above X-rays interpreted by me (1pt min.). @ -None done CT interpreted by me (1pt min.). @ -None done U/S interpreted by me (1pt. min.). @ -None done What testing was considered but not performed or refused? (CT, X-rays, U/S, labs)? Why? @ -None What meds were considered but not given or refused? Why? @ -None Did you discuss the management of the patient with other professionals (professionals i.e. ODILIA Fitch, [employer], lab, RT, psych nurse, health care social worker, heel attacher wood, teacher, sheriffs officer, case advocate)? Give summary @ -No Was smoking cessation discussed for >3mins.? @ -No Was critical care preformed (if so, how long)? @ -No Were there social determinants of health that impacted care today? How? ( Homelessness, low income, unemployed, alcoholism, drug addiction, transportation, low edu. Level, literacy, decrease access to med. care, penitentiary, rehab)? @ -No Was there de-escalation of care discussed even if they declined (Discuss DNR or withdrawal of care, Hospice)? DNR status @ -No What co-morbidities impacted this encounter? (DM, HTN, Smoking, COPD, CAD, Cancer, CVA, ARF, Chemo, Hep., AIDS, mental health diagnosis, sleep apnea, morbid obesity)? @ -[Diabetes Was patient admitted / discharged? Hospital course, mention meds given and route, prescriptions, significant lab abnormalities, going to OR and other pertinent info. @ -58-year-old female right-sided facial swelling for the past 24 hours after popping a pimple. There is a cellulitis. Patient will be covered with oral antibiotics including Keflex and Bactrim. She did have 5 days of pharyngitis as well. The oropharyngeal exam is unremarkable with the exception of mild pharyngeal erythema. Patient is given strict return parameters and will follow closely with her primary care provider. Undiagnosed new problem with uncertain prognosis? @ -No Drug Therapy requiring intensive monitoring for toxicity (Heparin, Nitro, Insul in, Cardizem)? @ -No Were any procedures done? @ -No Diagnosis/symptom? @ -Pharyngitis, facial cellulitis Acute, or Chronic, or Acute on Chronic? @ -Acute Uncomplicated (without systemic symptoms) or Complicated (systemic symptoms)? @ -Default Side effects of treatment? @ -No Exacerbation, Progression, or Severe Exacerbation? @ -No Poses a threat to life or bodily function? How? (Chest pain, [place], [place], pneumonia, PE, COPD, DKA, ARF, appy, cholecystitis, CVA, Diverticulitis, Homicidal, Suicidal, threat to staff... and all critical care pts) @ -Low risk at this time Disposition Clinical Impression: Pharyngitis, Facial cellulitis Disposition: HOME SELF-CARE Condition: Fair Instructions (If sedation given, give patient instructions): Pharyngitis (ED), Cellulitis (ED) Prescriptions: Sulfamethox-Tmp 800-160Mg [Bactrim DS 800-160 mg] 1 tab PO Q12HR 10 Days #20 tab Cephalexin [Keflex] 500 mg PO Q6HR 10 Days #40 cap Is patient prescribed a controlled substance at d/c from ED?: No Referrals: Anirudh Bhandari MD [Primary Care Provider] - 1-2 days Time of Disposition: 11:31
[2023-10-13] MEDS: SULFAMETHOX-TMP 800-160MG 1 EACH TAB PO STA (11:41)
[2023-10-13] MEDS: CEPHALEXIN 500 MG CAP PO STA (11:41)
[2023-10-13 11:58] VITALS: RESP 18
[2023-10-13 12:47] VITALS: BP 134/84; PULSE 91
== END 2023-10-13 12:45 | disposition home or self-care (01) ==
LOC: EC 11:02
DX: L03.211 Cellulitis of face (principal); J02.9 Acute pharyngitis, unspecified; Z91.041 Radiographic dye allergy status; Z91.040 Latex allergy status; Z88.5 Allergy status to narcotic agent
CPT/HCPCS: 99283

== ENCOUNTER → 2024-04-22 | Outpatient (CLI) | payer BC ==
[2024-04-22 10:57] VITALS: BP 136/84; PULSE 98; RESP 19; TEMP 98
--- NOTE | 2024-04-22 15:22 | P.PAINPG ---
PQRS Measure Charge Sheet Comment: HISTORY OF PRESENT ILLNESS: A 59 yr old female w at side as a referral from Dr Ontiveros presents today w severe and chronic VIGIL and neck pain secondary to occipital neuralgia, cervicogenic VIGIL for evaluation. Pt states pain level is provoked at 7 /10 in intensity, constant, localized in the upper cervical spine, predominantly axial, sharp in character w occasional shooting pain towards the top of the head. Pain is provoked by lack of sleep. Pain is alleviated by physician guided home exercises/ stretches daily since Feb 2024, heat, ice, medications (Emgality, Flexeril), repositioning and rest . Cervical disability score at 18. PMH: OA, COPD, NIDDM II, Fibromyalgia, Hyperlipidemia, HTN, Cushings Syndrome, Liver Disease, Renal Disease, Hydrantitis, Supportiva, Hypothyroidism PSH: Back Surgery, Breast Surgery, Section, Cholecystectomy, Hysterectomy SH: Negative x3 FH: Mo- Neurological Disorder. Fa- CA, CHD, DM All: See list Meds: See list REVIEW OF ORGAN SYSTEMS: CONSTITUTIONAL: No fevers or chills. No recent weight loss. NEUROLOGICAL: + numbness and tingling along the distal extremities. No seizure disorders or headaches. MUSCULOSKELETAL: + pain PSYCHIATRIC: Denies current depression or suicidal thoughts. Physical Examinations : Constitutional : Cooperative , not in acute distress . Neurologic : Cranial nerve II to XII intact. No focal neurological deficits. Psychiatric : alert & oriented x 3. Matching mood & appropriate affect. Judgment & insight intact. Musculoskeletal : Cervical Spine +BL YANELY TTP Motor strength in the deltoid and biceps: Normal right side. Normal Left side Motor strength biceps and the wrist extensors: Normal right side . Normal left side Motor strength in the triceps muscle: Normal right side. Normal left side Deep tendon reflexes: Normal at the biceps. Normal at Brachioradialis. Normal at triceps Vertebral body tenderness to deep pa lpation over Cervical facet loading test: positive bilaterally Spurling test: positive bilaterally Neck distraction test: positive bilaterally Jovanni sign: positive bilaterally Lumbar spine Motor strength lower extremities ,thigh and legs 5/5 Right side , 5/5 Left side Deep tendon reflexes : Normal Knee Jerk. Normal Ankle Jerk Vertebral body tenderness over Damon Test positive Lumbar facet Loading Test: positive Right / positive Left Range of motion of the lumbar spine Flexion 30 degrees, extension 10 degrees Straight Leg Raise test: Left/ Right positive at degrees Hailey test: positive right / positive left. Severe tenderness over the Sacroiliac joint on the Right / Left sides Gaenslen test: positive bilaterally Seated flexion test: positive bilaterally. Sacral spine : Severe tenderness over the Sacroiliac joint: right side / left side Range of motion: Flexion of the lumbar spine <60 degrees Range of motion: Extension of the lumbar spine <20 degrees Gaenslen's Test positive Hailey test: positive right side / left side Thigh Thrust Test Sacral Thrust Test Imaging: MRI non contrast brain from 02/09/24 reviewed Assessment/ Plan : BL Occipital neuralgia, Cervicogenic VIGIL Recommendation of BL YANELY #1. Risks, benefits of procedure discussed and patient verbalized understanding. Admits to anti- coagulant use or medical history of diabetes. Protocol for discontinuation/ continuation of medications rishi procedure discussed. Minimal anesthesia provided, if clinically indicated, consisting of Versed and Fentanyl. All questions answered. I have spent greater than 30 minutes on patient care today. Dr Galvan was available by phone for the evaluation of this patient. The time was used to review the medical records including relevant urine studies and Prescription history (MAPs), review of the available imaging, evaluation and examination of the patient, coordination of care with the medical staff and if applicable referring physicians, as well as creation of the medical record - Pain Location Head Pharmacological Interventions: PRN Medication PQRS Narrative: Smoking Status Never smoker Home Medications: Ambulatory Orders lisinopriL [Zestril] 10 mg PO DAILY 09/17/13 metFORMIN HCL ER [Glucophage XR] 500 mg PO DAILY PRN 09/17/13 B Complex & C No.20/Folic Acid [Nephrocaps Softgel] 1 mg PO DAILY 07/20/15 Cholecalciferol [Vitamin D3 (10 Mcg = 400 Iu)] 4,000 mg PO DAILY 07/20/15 Simvastatin [Zocor] 20 mg PO HS 07/20/15 glipiZIDE XL [Glucotrol XL] 5 mg PO DAILY 07/20/15 ALPRAZolam [Xanax] 0.5 mg PO TID PRN 05/30/17 Ascorbic Acid [Vitamin C] 1,000 mg PO DAILY 05/30/17 Cranberry Fruit Concentrate [Azo Cranberry] 25,000 mg PO DAILY 05/30/17 Naproxen Sodium [Aleve] 220 mg PO DAILY PRN 05/30/17 Sennosides [Senna] 25.8 tab PO HS 05/30/17 Zinc 509 mg PO DAILY PRN 05/30/17 Sulfamethox-Tmp 800-160Mg [Bactrim DS 800-160 mg] 1 tab PO Q12HR #14 tab 03/20/21 Cephalexin [Keflex] 500 mg PO QID 10 Days #40 cap 11/29/21 Sulfamethox-Tmp 800-160Mg [Bactrim DS 800-160 mg] 1 tab PO Q12HR #28 tab Cephalexin [Keflex] 500 mg PO Q6HR 10 Days #40 cap 10/13/23 Sulfamethox-Tmp 800-160Mg [Bactrim DS 800-160 mg] 1 tab PO Q12HR 10 Days #20 tab 10/13/23 Controlled Substance Measures - Controlled Substance Measures Is patient prescribed a controlled substance at discharge?: No
== END ==
LOC: PNWHC3 10:34
PROVIDERS: ATTEND Specialist
DX: M54.81 Occipital neuralgia (principal); G44.86 Cervicogenic headache; Z88.8 Allergy status to other drugs, medicaments and biological substances; Z91.040 Latex allergy status; Z88.5 Allergy status to narcotic agent
CPT/HCPCS: 99202

== ENCOUNTER → 2024-08-03 | Outpatient (CLI) | payer BC ==
--- NOTE | 2024-08-03 14:50 | MM ---
Reason for Exam: Screening (asymptomatic). Last screening mammogram was performed 12 month(s) ago. Patient History: Menarche at age 14. First Full-Term at age 20. Left ovary removed at age 34. Right ovary removed at age 34. Hysterectomy at age 34. Postmenopausal. 2014, Lumpectomy on the Right side. Risk Values: Gema 5 year model risk: 1.2%. NCI Lifetime model risk: 5.8%. Prior Study Comparison: 02/13/1999 Bilateral Screening Mammogram, [facility]. 02/13/2001 Bilateral Screening Mammogram, [facility]. 03/04/2001 Left Special View Mammogram, [facility]. Tissue Density: There are scattered areas of fibroglandular density. Findings: Analyzed By CAD. There are benign-appearing vascular calcifications redemonstrated in the bilateral breasts. There are a few scattered benign-appearing round calcifications bilaterally redemonstrated. There are stable several small circumscribed round masses in the left breast measuring up to 6 mm in size. There is no suspicious group of microcalcifications or new or enlarging suspicious mass in either breast. Overall Assessment: Benign, BI-RAD 2 Management: Screening Mammogram of both breasts in 1 year. . Patient should continue monthly self-breast exams. A clinical breast exam by your physician is recommended on an annual basis. This exam should not preclude additional follow-up of suspicious palpable abnormalities. Note on Gema scores and lifetime risk: 1. A Gema score greater than 3% is considered moderate risk. If this is the case, consider specialist referral to assess eligibility for a risk reducing agent. 2. If overall lifetime risk for the development of breast cancer is 20% or higher, the patient may qualify for future screening with alternating mammogram and breast MRI. [facility], , 08/03/2024 2:47 PM. Electronically signed and approved by: Refugio Montemayor M.D.
--- NOTE | 2024-08-03 14:53 | BD ---
EXAMINATION TYPE: Axial Bone Density DATE OF EXAM: 08/03/2024 CLINICAL HISTORY: 59 years old Female. ICD-10 CODE: N95.1 POST MENOPAUSAL , Additional History: Height: 71 Weight: 217 FRAX RISK QUESTIONS: Family History (Parent hip fracture): yes Secondary Osteoporosis: yes 2. Hyperthyroidism: yes 3. Menopause before 45: yes RISK FACTORS HISTORY OF: Surgery to Spine/Hip(right/left)/Wrist (right/left): lumbar surgery for disc replacement When: 2005 MEDICATIONS: Thyroid Medications: Which medication: none pt allergic to thyroid med EXAM MEASUREMENTS: Bone mineral densitometry was performed using the [employer] System. Bone mineral density as measured about the Lumbar spine is: ----- L1-L4(G/cm2): 1.220 T Score Values are as follows: ----- L1: -0.3 ----- L2: -0.3 ----- L3: 0.4 ----- L4: 1.4 ----- L1-L4: 0.3 Z Score Values are as follows: ----- L1: -0.1 ----- L2: -0.1 ----- L3: 0.6 ----- L4: 1.6 ----- L1-L4: 0.5 First dexa at [facility] Bone mineral density about the R hip (g/cm2): 0.936 Bone mineral density about the L hip (g/cm2): 0.930 T Score values are as follows: -----R Neck: -1.1 -----L Neck: -1.4 -----R Total: -0.6 -----L Total: -0.6 Z Score values are as follows: -----R Neck: -0.5 -----L Neck: -0.8 -----R Total: -0.4 -----L Total: -0.4 First dexa at [facility] FRAX%s: The graph provided illustrates a 15.4% chance for a major osteoporotic fx and a 0.6% chance f or the hips probability for fx in 10 years time. IMPRESSION: Osteopenia (T Score between -2.5 and -1) at the Femoral neck level of both hips. There is slightly increased risk of fracture and the patient may be considered for treatment. Re-Screen 2-5 years. NOTE: T-SCORE=SD OF THE YOUNG ADULT MEAN. [facility], , 08/03/2024 2:50 PM
== END | disposition home or self-care (01) ==
LOC: RADMAMWWP 14:05
PROVIDERS: ATTEND Family Medicine
DX: Z12.31 Encounter for screening mammogram for malignant neoplasm of breast (principal); M85.89 Other specified disorders of bone density and structure, multiple sites; R92.323 Mammographic fibroglandular density, bilateral breasts; R92.1 Mammographic calcification found on diagnostic imaging of breast; Z78.0 Asymptomatic menopausal state
CPT/HCPCS: 77063; 77067; 77080

== ENCOUNTER → 2024-10-04 | Outpatient (CLI) | payer BC, MEDICARE ==
[2024-10-04 09:47] VITALS: BP 130/81; PULSE 99; RESP 16; TEMP 96.8
--- NOTE | 2024-10-06 10:51 | P.PAINPG ---
PQRS Measure Charge Sheet Comment: HISTORY OF PRESENT ILLNESS: A 59 yr old female w at side presents today w severe and chronic VIGIL and neck pain secondary to occipital neuralgia, cervicogenic VIGIL for evaluation. Pt states pain level is provoked at 7-8 /10 in intensity, constant, localized in the upper cervical spine, predominantly axial, sharp in character w occasional shooting pain towards the top of the head. Pain is provoked by lack of sleep. Pain is alleviated by physician guided home exercises/ stretches daily since Feb 2024, heat, ice, medications, repositioning and rest . Cervical disability score at 18. Interventional procedures include Medications include Emgality, Flexeril, Ubrelvy, Excedrin REVIEW OF ORGAN SYSTEMS: CONSTITUTIONAL: No fevers or chills. No recent weight loss. NEUROLOGICAL: + numbness and tingling along the distal extremities. No seizure disorders or headaches. MUSCULOSKELETAL: + pain PSYCHIATRIC: Denies current depression or suicidal thoughts. Physical Examinations : Constitutional : Cooperative , not in acute distress . Neurologic : Cranial nerve II to XII intact. No focal neurological deficits. Psychiatric : alert & oriented x 3. Matching mood & appropriate affect. Judgment & insight intact. Musculoskeletal : Cervical Spine +BL YANELY TTP Motor strength in the deltoid and biceps: Normal right side. Normal Left side Motor strength biceps and the wrist extensors: Normal right side . Normal left side Motor strength in the triceps muscle: Normal right side. Normal left side Deep tendon reflexes: Normal at the biceps. Normal at Brachioradialis. Normal at triceps Vertebral body tenderness to deep palpation over Cervical facet loading test: positive bilaterally Spurling test: positive bilaterally Neck distraction test: positive bilaterally Jovanni sign: positive bilaterally Lumbar spine Motor strength lower extremities ,thigh and legs 5/5 Right side , 5/5 Left side Deep tendon reflexes : Normal Knee Jerk. Normal Ankle Jerk Vertebral body tenderness over Damon Test positive Lumbar facet Loading Test: positive Right / positive Left Range of motion of the lumbar spine Flexion 30 degrees, extension 10 degrees Straight Leg Raise test: Left/ Right positive at degrees Hailey test: positive right / positive left. Severe tenderness over the Sacroiliac joint on the Right / Left sides Gaenslen test: positive bilaterally Seated flexion test: positive bilaterally. Sacral spine : Severe tenderness over the Sacroiliac joint: right side / left side Range of motion: Flexion of the lumbar spine <60 degrees Range of motion: Extension of the lumbar spine <20 degrees Gaenslen's Test positive Hailey test: positive right side / left side Thigh Thrust Test Sacral Thrust Test Imaging: MRI non contrast brain from 02/09/24 reviewed Assessment/ Plan : BL Occipital neuralgia, Cervicogenic VIGIL Recommendation of BL YANELY #1. Risks, benefits of procedure discussed and patient verbalized understanding. Admits to anti- coagulant use or medical history of diabetes. Protocol for discontinuation/ continuation of medications rishi procedure discussed. All questions answered. I have spent greater than 30 minutes on patient care today. Dr Galvan was available by phone for the evaluation of this patient. The time was used to review the medical records including relevant urine studies and Prescription history (MAPs), review of the available imaging, evaluation and examination of the patient, coordination of care with the medical staff and if applicable referring physicians, as well as creation of the medical record PQRS Narrative: Smoking Status Never smoker Narcotic Agreement Date Signed 04/22/24 Hx Alcohol Use (MH) No Home Medications: Ambulatory Orders lisinopriL [Zestril] 10 mg PO DAILY 09/17/13 metFORMIN HCL ER [Glucophage XR] 500 mg PO DAILY PRN 09/17/13 B Complex & C No.20/Folic Acid [Nephrocaps Softgel] 1 mg PO DAILY 07/20/15 Cholecalciferol [Vitamin D3 (10 Mcg = 400 Iu)] 4,000 mg PO DAILY 07/20/15 Simvastatin [Zocor] 20 mg PO HS 07/20/15 glipiZIDE XL [Glucotrol XL] 5 mg PO DAILY 07/20/15 ALPRAZolam [Xanax] 0.5 mg PO TID PRN 05/30/17 Ascorbic Acid [Vitamin C] 1,000 mg PO DAILY 05/30/17 Cranberry Fruit Concentrate [Azo Cranberry] 25,000 mg PO DAILY 05/30/17 Naproxen Sodium [Aleve] 220 mg PO DAILY PRN 05/30/17 Sennosides [Senna] 25.8 tab PO HS 05/30/17 Zinc 509 mg PO DAILY PRN 05/30/17 Sulfamethox-Tmp 800-160Mg [Bactrim DS 800-160 mg] 1 tab PO Q12HR #14 tab 03/20/21 Cephalexin [Keflex] 500 mg PO QID 10 Days #40 cap 11/29/21 Sulfamethox-Tmp 800-160Mg [Bactrim DS 800-160 mg] 1 tab PO Q12HR #28 tab 11/29/21 Cephalexin [Keflex] 500 mg PO Q6HR 10 Days #40 cap 10/13/23 Sulfamethox-Tmp 800-160Mg [Bactrim DS 800-160 mg] 1 tab PO Q12HR 10 Days #20 tab 10/13/23 Controlled Substance Measures - Controlled Substance Measures Is patient prescribed a controlled substance at discharge?: No
== END ==
LOC: PNWHC3 09:11
PROVIDERS: ATTEND Specialist
DX: M54.81 Occipital neuralgia (principal); M54.2 Cervicalgia; G44.86 Cervicogenic headache; Z88.0 Allergy status to penicillin; Z88.5 Allergy status to narcotic agent; Z91.040 Latex allergy status; Z91.041 Radiographic dye allergy status
CPT/HCPCS: 99211

== ENCOUNTER 2024-10-12 07:32 | Day surgery (SDC) | payer BC, MEDICARE ==
[2024-10-06 15:43] VITALS: BMI 28.8
[~2024-10-12 07:32] MED LIST: LIDOCAINE 1% (10MG/ML) FOR IV START INTRADERMA PRN
[2024-10-12 07:59] VITALS: TEMP 96.5
[2024-10-12] MEDS: NA PHOS,M-B/NA PHOS,DI-BA 133 ML ENEMA RECTAL STA (08:11)
[2024-10-12] MEDS: LACTATED RINGERS 1,000 ML IV SCH (08:11)
[2024-10-12] MEDS: IV FLUID CONTINUATION 1,000 ML IV ONE (08:13)
[2024-10-12 08:22] LABS: Glucose,Whole Blood 180 mg/dL (70-110)
[2024-10-12] MEDS ORDERED: PROPOFOL 10 MG/ML 20 ML VIAL IV ONE (08:35)
--- NOTE | 2024-10-12 08:39 | P.GSHP ---
History of Present Illness H&P Date: 10/12/24 Chief Complaint: Colon cancer screening 58-year-old female here for colonoscopy. Patient with history of previous colonoscopy with polyps. History of chronic constipation. No family history of colon cancer. Past Medical History Past Medical History: COPD, Diabetes Mellitus, Fibromyalgia, Hyperlipidemia, Hypertension, Liver Disease, Osteoarthritis (OA) Additional Past Medical History / Comment(s): cushings, enlarged spleen, anemia, migraines, right breast pre-cancer, IBS-C, Hidradenitis suppurativa, current Right sinus abscess-taking Bactrim History of Any Multi-Drug Resistant Organisms: MRSA Date of last positivie culture/infection: 12/06 MDRO Source:: boils Past Surgical History: Back Surgery, Breast Surgery, Section, Cholecystectomy, Hysterectomy Additional Past Surgical History / Comment(s): right breast lumpectomy Past Anesthesia/Blood Transfusion Reactions: No Reported Reaction Past Psychological History: No Psychological Hx Reported Smoking Status: Never smoker Past Alcohol Use History: None Reported Past Drug Use History: None Reported - Past Family History Mother Family Medical History: Neurologic Disorder Father Family Medical History: Cancer, Congestive Heart Failure (CHF), Diabetes Mellitus Medications and Allergies Home Medications Medication Instructions Recorded Confirmed Type lisinopriL [Zestril] 10 mg PO DAILY 09/17/13 10/06/24 History metFORMIN HCL ER [Glucophage XR] 500 mg PO BID 09/17/13 10/06/24 History glipiZIDE XL [Glucotrol XL] 10 mg PO BID 07/20/15 10/06/24 History Naproxen Sodium [Aleve] 220 mg PO DAILY PRN 05/30/17 10/06/24 History Sennosides [Senna] 25.8 tab PO HS 05/30/17 10/06/24 History Sulfamethox-Tmp 800-160Mg [Bactrim 1 tab PO Q12HR 10 Days #20 tab 10/13/23 10/06/24 Rx DS 800-160 mg] Atorvastatin [Lipitor] 80 mg PO HS 10/06/24 10/06/24 History Cyclobenzaprine [Flexeril] 10 mg PO TID 10/06/24 10/06/24 History Dapagliflozin Propanediol [Farxiga] 10 mg PO DAILY 10/06/24 10/06/24 History Dulaglutide [Trulicity] 4.5 mg SQ Q7D 10/06/24 10/06/24 History Migraine Injection Med. Unk. 1 dose INJ Q30D 10/06/24 10/06/24 History Ubrogepant [Ubrelvy] 50 mg PO DIRECTED PRN 10/06/24 10/06/24 History Allergies Allergy/AdvReac Type Severity Reaction Status Date / Time iodine Allergy Anaphylaxis Verified 10/12/24 07:51 latex Allergy Swelling Verified 10/12/24 07:51 Penicillins Allergy Rash/Hives Verified 10/12/24 07:51 codeine AdvReac Nausea & Verified 10/12/24 07:51 Vomiting Surgical - Exam Vital Signs Temp Pulse Resp BP Pulse Ox 96.5 F L 96 16 147/79 98 10/12/24 07:59 10/12/24 07:59 10/12/24 07:59 10/12/24 07:59 10/12/24 07:59 Physical exam: General: Well-developed, well-nourished HEENT: Normocephalic, sclerae nonicteric Abdomen: Nontender, nondistended Extremities: No edema Neuro: Alert and oriented Results - Labs Abnormal Lab Results - Last 24 Hours (Table) 10/12/24 Range/Units 08:20 POC Glucose (mg/dL) 180 H (70-110) mg/dL Assessment and Plan (1) Colon cancer screening Narrative/Plan: Will proceed with colonoscopy at this time. Current Visit: Yes Status: Acute Code(s): Z12.11 - ENCOUNTER FOR SCREENING FOR MALIGNANT NEOPLASM OF COLON SNOMED Code(s): 927127657
--- NOTE | 2024-10-12 09:02 | P.PCN ---
Date of Procedure: 10/12/24 Procedure(s) Performed: PREOPERATIVE DIAGNOSIS: Colon cancer screening with history of polyps POSTOPERATIVE DIAGNOSIS: Normal exam tortuous PROCEDURE: Colonoscopy ANESTHESIA: MAC SURGEON: Dereck Devi M.D. SPECIMENS: None ENDOSCOPIC PROCEDURE: The patient was placed on the endoscopy table in the left decubitus position. The Olympus colonoscope was inserted into the anus and passed under direct visualization to the base of the cecum. The appendiceal orifice was visualized. From that point the scope was slowly withdrawn inspecting all surfaces carefully. There were no neoplastic inflammatory or polypoid lesions throughout the cecum, ascending, transverse, descending, sigmoid and rectum. There was no visible diverticulosis noted. Patient's colon was fairly tortuous. Digital rectal examination was normal. The patient was taken to the recovery room in stable condition per anesthesia guidelines. RECOMMENDATIONS: Resume diet. Repeat colonoscopy 7 to 10 years.
[2024-10-12 09:23] VITALS: BP 99/58; PULSE 91; RESP 18
== END 2024-10-12 09:57 | disposition home or self-care (01) ==
LOC: ORWHC2ENDO 07:32
PROVIDERS: ATTEND Surgery
DX: Z12.11 Encounter for screening for malignant neoplasm of colon (principal); K58.9 Irritable bowel syndrome, unspecified; J44.9 Chronic obstructive pulmonary disease, unspecified; I12.9 Hypertensive chronic kidney disease with stage 1 through stage 4 chronic kidney disease, or unspecified chronic kidney disease; E11.22 Type 2 diabetes mellitus with diabetic chronic kidney disease; E78.5 Hyperlipidemia, unspecified; N18.9 Chronic kidney disease, unspecified; M79.7 Fibromyalgia; M19.90 Unspecified osteoarthritis, unspecified site; G43.909 Migraine, unspecified, not intractable, without status migrainosus; Z86.0100 Personal history of colon polyps, unspecified; Z90.49 Acquired absence of other specified parts of digestive tract; Z90.710 Acquired absence of both cervix and uterus; Z83.3 Family history of diabetes mellitus; Z82.49 Family history of ischemic heart disease and other diseases of the circulatory system; Z91.040 Latex allergy status; Z88.8 Allergy status to other drugs, medicaments and biological substances; Z88.5 Allergy status to narcotic agent; Z88.0 Allergy status to penicillin; Z79.02 Long term (current) use of antithrombotics/antiplatelets; Z79.84 Long term (current) use of oral hypoglycemic drugs; Z79.899 Other long term (current) drug therapy; Z91.041 Radiographic dye allergy status
CPT/HCPCS: J2704; G0121; 45378

== ENCOUNTER 2024-10-28 07:45 | Day surgery (SDC) | payer MEDICARE ==
[2024-10-27 09:51] VITALS: BMI 28.8
[2024-10-28] MEDS ORDERED: LACTATED RINGERS 1,000 ML IV SCH (08:20)
[2024-10-28 08:32] VITALS: TEMP 97
[2024-10-28 08:37] LABS: Glucose,Whole Blood 204 mg/dL (70-110)
[2024-10-28] MEDS ORDERED: methylPREDNISolone ACETATE 40 MG/ML 1 ML VIAL ONE (09:58)
[2024-10-28] MEDS ORDERED: ROPIVACAINE 5 MG/ML 30 ML VIAL ONE (09:58)
--- NOTE | 2024-10-28 10:14 | P.PCN ---
Description of Procedure: Preoperative diagnoses. Greater occipital neuralgia Postoperative diagnoses. Greater occipital neuralgia Procedure. Bilateral Greater occipital nerve block with local anesthetic and steroid. Anesthesia. Local infiltration of 1% lidocaine. Continuous pulse ox, EKG, blood pressure and verbal communication was maintained with the patient in the OR. . Estimated blood loss. Minimal. Procedure indication. The patient has a history of severe chronic neck pain ,and headache, diagnosed with occipital neuralgia. Exam was positive for severe tenderness over the occipital nerve, she will be a good candidate occipital nerve block. Patient failed conservative management. Discussed with the patient the procedure, alternative, complications including infection, bleeding, nerve damage, aggravation of pain all of which could be permanent. Patient understands and QUESTIONS were answered. Procedure description. After getting consent patient was taken to the OR , sitting position with head on a table . At the junction of RIGHT sternocleidomastoid muscle with trapezius muscle close to right superior nucheal line was identified, occipital artery was palpated. Just medial to the occipital artery 25-gauge needle attached to a syringe was introduced. Then after negative aspiration for heme and CSF and there was no paresthesia during the injection, 2 ml of Ropivacaine 0.5% and 0.5 ml of 20 mg of Depo-Medrol injected, the needle was removed. Entire same procedure was repeated for the LEFT Greater occipital nerve. The patient returned to supine position after the back was cleaned and a Band- Aid applied. Disposition. Patient tolerated the procedure well. No complication. Discharged home in stable condition.
[2024-10-28 10:30] VITALS: BP 111/70; PULSE 98; RESP 14
== END 2024-10-28 10:48 | disposition home or self-care (01) ==
LOC: ORPAIN 07:45
PROVIDERS: ATTEND Pain Medicine Interventional Pain Medicine
DX: M54.81 Occipital neuralgia (principal); Z88.5 Allergy status to narcotic agent; Z88.0 Allergy status to penicillin; Z88.8 Allergy status to other drugs, medicaments and biological substances; Z91.040 Latex allergy status
CPT/HCPCS: 64405; J2795; J1010

== ENCOUNTER → 2024-11-15 | Outpatient (CLI) | payer MEDICARE ==
[2024-11-15 10:21] VITALS: BP 120/81; PULSE 113; RESP 18
--- NOTE | 2024-11-15 15:48 | P.PAINPG ---
PQRS Measure Charge Sheet Comment: HISTORY OF PRESENT ILLNESS: A 59 yr old female w at side presents today w severe and chronic VIGIL and neck pain secondary to occipital neuralgia, cervicogenic VIGIL for evaluation s/p BL YANLEY #1. Pt states she experienced 0 % pain relief x 2-3 wks s/p procedure. Pt states pain level is provoked at 10 /10 in intensity, constant, localized in the upper cervical spine, predominantly axial, sharp in character w occasional shooting pain towards the forehead. Pain is provoked by "everything." Pain is alleviated by physician guided home exercises/ stretches daily since Feb 2024, heat, ice, medications, topical, repositioning and rest . Cervical disability score at 18. Interventional procedures include BL YANELY x1 (10/10) Medications include Emgality, Flexeril, Ubrelvy, Excedrin, Icy-Hot REVIEW OF ORGAN SYSTEMS: CONSTITUTIONAL: No fevers or chills. No recent weight loss. NEUROLOGICAL: + numbness and tingling along the distal extremities. No seizure disorders or headaches. MUSCULOSKELETAL: + pain PSYCHIATRIC: Denies current depression or suicidal thoughts. Physical Examinations : Constitutional : Cooperative , not in acute distress . Neurologic : Cranial nerve II to XII intact. No focal neurological deficits. Psychiatric : alert & oriented x 3. Matching mood & appropriate affect. Judgment & insight intact. Musculoskeletal : Cervical Spine +BL YANELY TTP Motor strength in the deltoid and biceps: Normal right side. Normal Left side Motor strength biceps and the wrist extensors: Normal right side . Normal left side Motor strength in the triceps muscle: Normal right side. Normal left side Deep tendon reflexes: Normal at the biceps. Normal at Brachioradialis. Normal at triceps Vertebral body tenderness to deep palpation over Cervical facet loading test: positive bilaterally Spurling test: positive bilaterally Neck distraction test: positive bilaterally Jovanni sign: positive bilaterally Lumbar spine Motor strength lower extremities ,thigh and legs 5/5 Right side , 5/5 Left side Deep tendon reflexes : Normal Knee Jerk. Normal Ankle Jerk Vertebral body tenderness over Damon Test positive Lumbar facet Loading Test: positive Right / positive Left Range of motion of the lumbar spine Flexion 30 degrees, extension 10 degrees Straight Leg Raise test: Left/ Right positive at degrees Hailey test: positive right / positive left. Severe tenderness over the Sacroiliac joint on the Right / Left sides Gaenslen test: positive bilaterally Seated flexion test: positive bilaterally. Sacral spine : Severe tenderness over the Sacroiliac joint: right side / left side Range of motion: Flexion of the lumbar spine <60 degrees Range of motion: Extension of the lumbar spine <20 degrees Gaenslen's Test positive Hailey test: positive right side / left side Thigh Thrust Test Sacral Thrust Test Imaging: MRI non contrast brain from 02/09/24 reviewed Assessment/ Plan : BL Occipital neuralgia, Cervicogenic VIGIL Will follow up w Dr Freed to explore additional treatment options. All questions answered. I have spent greater than 30 minutes on patient care today. Dr Galvan was available by phone for the evaluation of this patient. The time was used to review the medical records including relevant urine studies and Prescription history (MAPs), review of the available imaging, evaluation and examination of the patient, coordination of care with the medical staff and if applicable referring physicians, as well as creation of the medical record - Pain Location Bilateral Neck Non-Pharmacological Interventions: Heat, Ice, Massage, Physical Therapy Pharmacological Interventions: PRN Medication, Scheduled Medication PQRS Narrative: Smoking Status Never smoker Narcotic Agreement Date Signed 04/22/24 Hx Alcohol Use (MH) No Home Medications: Ambulatory Orders lisinopriL [Zestril] 10 mg PO DAILY 09/17/13 metFORMIN HCL ER [Glucophage XR] 500 mg PO TID 09/17/13 glipiZIDE XL [Glucotrol XL] 10 mg PO BID 07/20/15 Naproxen Sodium [Aleve] 220 mg PO DAILY PRN 05/30/17 Sennosides [Senna] 25.8 tab PO HS PRN 05/30/17 Atorvastatin [Lipitor] 80 mg PO HS 10/06/24 Cyclobenzaprine [Flexeril] 10 mg PO TID 10/06/24 Dapagliflozin Propanediol [Farxiga] 10 mg PO DAILY 10/06/24 Dulaglutide [Trulicity] 4.5 mg SQ TU 10/06/24 Ubrogepant [Ubrelvy] 100 mg PO DIRECTED PRN 10/06/24 ALPRAZolam [Xanax] 0.25 mg PO DAILY PRN 10/27/24 Galcanezumab-Gnlm [Emgality Syringe] 120 mg SQ Q30D 10/27/24 Latanoprost [Latanoprost 0.005%] 1 drop BOTH EYES HS 10/27/24 Gabapentin [Neurontin] 300 mg PO TID 11/15/24 Controlled Substance Measures - Controlled Substance Measures Is patient prescribed a controlled substance at discharge?: No
== END ==
LOC: PNWHC3 09:25
PROVIDERS: ATTEND Specialist
DX: M54.81 Occipital neuralgia (principal); G44.86 Cervicogenic headache; Z88.0 Allergy status to penicillin; Z88.5 Allergy status to narcotic agent; Z91.040 Latex allergy status; Z91.041 Radiographic dye allergy status
CPT/HCPCS: 99211